=== PATIENT | male | born 1970 | race Caucasian/White ===

== ENCOUNTER 2020-04-23 03:03 | Outpatient (CLI) | payer BC, SELFPAY ==
[2020-04-23 16:23] LABS: Abs Immature Grans 0.01 k/cumm (0.0-0.09); Absolute Basophil Count 0.05 k/cumm (0.0-0.2); Absolute Lymphocyte Count 1.42 k/cumm (1.2-3.4); Absolute Monocyte Count 0.41 k/cumm (0.11-0.7); Absolute Neutrophil Count 2.92 k/cumm (1.2-6.7); HCT 42.8 % (40.0-50.0); HGB 15.1 g/dL (13.5-17.5); Immature Grans % 0.2 %; Lymphocytes % 28.9; Mean Corp. HGB Concentration 35.3 g/dL (32.0-36.0); Mean Corpuscular Hemoglobin 30.9 pg (27.0-33.0); Mean Corpuscular Volume 87.5 fL (80-95); Mean Platelet Volume 10.1 fL (8.0-11.0); Monocytes % 8.4; Neutrophils % 59.5; Platelet Count 202 x1000/uL (130-400); RBC 4.89 m/cumm (4.50-6.00); RBC Distribution Width 11.8 % (11.8-14.1); White Blood Cell Count 4.91 k/cumm (4.4-10.8)
[2020-04-23 16:59] LABS: LDH 150 U/L (85-227)
[2020-04-24 13:51] LABS: Diff Comment Diff Reviewed; RBC Morphology Normal
== END 2020-04-23 03:23 ==
PROVIDERS: PCP Internal Medicine; Visit Provider Internal Medicine
DX: D72.819 Decreased white blood cell count, unspecified (principal)
CPT/HCPCS: 36415; 83615; 85025

== ENCOUNTER 2020-07-31 09:32 | Outpatient (REF) | payer BC, SELFPAY ==
[2020-08-04 15:49] LABS: Patient Race White; SARS-CoV-2 RNA Undetected (Undetected); SARS-CoV-2 Specimen Source Nasal
== END 2020-07-31 09:52 ==
LOC: NCHCN 09:32
PROVIDERS: PCP Internal Medicine; Visit Provider Nurse Practitioner Family
DX: J00 Acute nasopharyngitis [common cold] (principal)
CPT/HCPCS: U0003

== ENCOUNTER 2021-12-21 16:29 | Outpatient (CLI) | payer BC, SELFPAY ==
--- NOTE | 2021-12-21 10:25 | DI.RAD_ITS ---
Exam(s) XR HAND LT LIMITED EXAM: XR HAND LT LIMITED CLINICAL HISTORY: PAIN AND TENDERNESS TO IP JT S/P CRUSH INJURY TO LT THUMB. TECHNIQUE: 2D digital imaging was performed. Two views COMPARISON: No exams were available for comparison FINDINGS: The thumb is suboptimally positioned as this is a two-view exam of the hand and not a dedicated thumb exam.. BONES: No acute fracture is present. No bony destructive lesion is seen. JOINTS: No dislocation present. SOFT TISSUE: Normal. IMPRESSION: Unremarkable radiographs of the left hand. If there is continued clinical question of a fracture of the thumb, a dedicated thumb exam should be performed. DATA REPOSITORY: RADIATION DOSE DELIVERED:
== END 2021-12-21 16:49 ==
PROVIDERS: PCP Internal Medicine; Visit Provider Nurse Practitioner Family
DX: M79.642 Pain in left hand (principal); M79.645 Pain in left finger(s); T14.8XXA Other injury of unspecified body region, initial encounter
CPT/HCPCS: 73120

== ENCOUNTER 2022-04-23 02:27 | Outpatient (CLI) | payer BC, SELFPAY ==
--- OUTSIDE RECORDS SUMMARY | 2022-04-23 02:33 | XMS_ITS | Encounter Summary ---
:1970 Author Organization [facility] Address [address] [place] [address] Care Team Providers Name Role Phone Unknown, Provider Primary Care Provider Encounter Details Date Type Department Care Team Description 10/13/2017 Results Only [facility]- Dorothy Castle II, MD [phone] [address] [place], [place] [address] (Wo rk) Social History Tobacco Use Types Packs/Day Years Used Date Never Assessed Sex Assigned at Date Recorded Not on file documented as of this encounter Plan of Treatment Not on filedocumented as of this encounter Procedures Procedure Name Priority Date/Time Associated Diagnosis Comme [facility] SURGICAL PATHOLOGY Routine 10/13/2017 9:41 EST Re sults for this procedure are i n the results section. documented in this encounter Results SURGICAL PATHOLOGY (10/13/2017 9:41 EST) Pathology Report: SURGICAL PATHOLOGY REPORT [facility] Reports generated via electronic interface contain jaclyn ginal data; LABORATORY however they are lacking the format of the original re port. SERVICES Caution should be taken when reading/interpreting unfo rmatted reports. Name: ? MINAL CORDON ? Accession #: ? [id number] ? : ? 1970 (Age: [age]) ??M ? Collect Date: ? 10/13/2017 ? Location: ? [facility] ? Receive Date: ? 017 ? Provider: DOROTHY CHIN II, MD Copy to: ? Final Pathologic Diagnosis: A. COLON, CECUM, BIOPSY: - ??Colonic mucosa with reactive lymphoid aggregate. B. COLON, PROXIMAL ASCENDING POLYP, BIOPSY: - ??Colonic mucosa with reactive lymphoid aggregate. - ??Deeper levels examined. C. COLON, ASCENDING POLYP, BIOPSY: - ??Colonic mucosa with reactive lymphoid aggregate. - ??Deeper levels examined. D. COLON, SPLENIC FLEXURE POLYP, BIOPSY: - ??Colonic mucosa with reactive lymphoid aggregate. - ??Deeper levels examined. E. COLON, SIGMOID POLYP, BIOPSY: - ??Colonic mucosa with reactive lymphoid aggregate. - ??Deeper levels examined. F. COLON, RECTOSIGMOID POLYP, BIOPSY: - ??Colonic mucosa with no specific pathologic feature s. - ??Deeper levels examined. Document reviewed and electronically signed by: FRAN CHAVEZ MD Report ??Date: 10/19/2017 11:55 By the signature above, the attending physician certif ies that he/she has personally conducted a gross and/or microscopic examin ation of the described specimens and rendered or confirmed the above diagnosi s. Specimen(s) Received: A. ??Cecum B. ??Proximal ascending colon polyp C. ??Ascending colon polyp D. ??Splenic flexure polyp E. ??Sigmoid polyp F. ??Rectosigmoid polyps Clinical History: Screening colonoscopy; colon polyps Gross Description: A. ? Received in formalin labelled with proper pat ient identification (initials J, R) and cecum are two pink-mane tissues (0.2 x 0.2 x 0.1 cm each). Entirely submitted in block A1. ? B. ?Received in formalin labelled with proper p atient identification (initials J, R) and proximal ascending colon po lyp are two pink-mane tissues (0.2 x 0.2 x 0.1 cm and 0.2 x 0.2 x 0.2 cm). Entirely submitted in block B1. C. ?Received in formalin labelled with proper p atient identification (initials J, R) and ascendi ng colon polyp is a single pink-mane tissue fragment (0.3 x 0.2 x 0.1 cm). Submitted intact in block C1. D. ?Received in formalin labelled with proper p atient identification (initials J, R) and splenic flexure polyp are three pink-mane tissues (0.1 x 0.1 x 0.1 cm to 0.3 x 0.3 x 0.1 cm). Entirely submitte d in block D1. E. ?Received in formalin labelled with proper p atient identification (initials J, R) and sigmoid polyp are two pink-mane tissues (0.2 x 0.1 x 0.1 cm and 0.2 x 0.2 x 0.1 cm). Entirely submitted in block E 1. F. ?Received in formalin labelled with proper p atient identification (initials J, R) and rectosi gmoid polyps are two pink-mane tissues (0.2 x 0.1 x 0.1 cm and 0.3 x 0.2 x 0.2 cm). Entirely submitted in block F1. DOROTHY Miller (ASC) 10/18/2017 7:48 AM End of Report Specimen Performing Organization Address City/State/ZIP Code Phon e Number [facility] [address] [place] [address] SERVICES documented in this encounter Visit Diagnoses Not on filedocumented in this encounter Care Teams Consulting Sales Manager Relationship Specialty Start Date End Date Unknown, Provider, PCP - General 10/14/17 documented as of this encounter
--- OUTSIDE RECORDS SUMMARY | 2022-04-23 02:33 | XMS_ITS | Encounter Summary ---
:1970 Author Organization [facility] [place] [address] Care Team Providers Name Role Phone Mike Mosher MD Primary Care Provider Encounter Details Date Type Department Care Team Description 04/11/2020 [place] [facility] [place] [address] Social History Tobacco Use Types Packs/Day Years Used Date Never Smoker Smokeless Tobacco: Never Used Alcohol Use Standard Drinks/Week Comments Yes 0 (1 standard drink = 0.6 oz pure alcoho l) once per month Alcohol Habits Answer Date Recorded How often do you have a drink containing alcohol? Not asked How many drinks containing alcohol do you have on a Not aske d typical day when you are drinking? How often do you have six or more drinks on one Not asked occasion? Comment: once per month 02/13/2020 Sex Assigned at Date Recorded Not on file documented as of this encounter Miscellaneous Notes Telephone Encounter - Penny Leary LNA - 04/11/2020 12:28 PM EDT MAEGAN Manual Lathe Operator Pre-Telemedicine Phone Note [x] Patient not reached [] Patient reached and the following information was reviewed/obtained per protocol: [] Confirmed patient name and date of [] Confirmed telemedicine ruma (Vidyo and Virtual Visit) is downloaded and functioning [] Confirmed location of patient - TeleVisit is taking place in [] [place] [] ID [] If not on [facility] [place] [facility], working on signing up for [facility] [place] [facility] [] Confirmed has completed any pre-visit questionnaires [] If has not received required pre-visit questionnaires, send via [employer] [] Reviewed patient medications [] Documented self-reported vitals: [] Weight [] Height [] pulse recorded [] Other information or concerns documented in this encounter Plan of Treatment Not on filedocumented as of this encounter Visit Diagnoses Not on filedocumented in this encounter Care Teams Entertainment Usher Relationship Specialty Start Date End Date Mike Mosher MD PCP - General General Internal Medicine 02/11/[address] [place] [id number] documented as of this encounter
--- OUTSIDE RECORDS SUMMARY | 2022-04-23 02:33 | XMS_ITS | Encounter Summary ---
:1970 Author Organization [facility] [address] Care Team Providers Name Role Phone Mike Mosher MD Primary Care Provider Reason for Visit Reason Comments Follow-up rhinitis Encounter Details Date Type Department Care Team Description 06/18/2020 TH Visit Allergy at [facility] Cherie Schaffer, Chronic rhinitis; (TeleHealth) [facility] Adverse food reaction, subsequent encoun ter; [facility] Chronic conjunctivitis of jaydon th eyes, unspecified chronic conjunctivitis type; [facility] [address] History of eosinophilia; [phone] ALLERGY AND Leukopenia, unspecified type ; [phone] [place]UNOLOG[place] [id number] Social History Tobacco Use Types Packs/Day Years [...] on file documented as of this encounter Progress Notes Cherie Schaffer MD - 06/18/2020 1:30 PM EDT [facility] Telehealth Visit 2019 Public Health Crisis, COVID19 Pandemic Section of Allergy, Asthma and Immunology Patient Location: [place] I obtained the patient's consent to receiving health care services at [facility] through telemedicine. We discussed the opportunities and limitations of delivering health care services through telemedicine. I told the patient that the telemedicine service is being delivered over a secure connection, except in the event of emergency conditions when such requirements may be waived. Patient agreed to the participation of other individuals assisting with their care by telemedicine, if indicated. Patient informed that telemedicine informed consent form is available for patient's review in [facility] patient portal, [facility] Chief Complaint Patient presents with ??? Follow-up rhinitis HPI. Mike Cordon Is here today for a follow up visit. Last encounter in this section was on 04/16/2020 The patient has abdominal pain and bloating that is improved since his last visit. His primary care wears a Nitropatch has prescribed him D- Hist. Since starting D- Hist, he has noted a decrease in bloating and abdominal pain. He also takes zinc and magnesium supplements and vitamin C supplements. He has eliminated apples from his diet and feels his IBS has improved. The patient continues to have abdominal pain and bloating if he eats garlic and onions. He does havea history of IBS. He has been keeping a food diary. He is tolerating gluten-free pizza. The josé miguel does not have any postnasal drip and itchy eyes currently. He hasent clear rhinorrhea and nasal congestion which is typically worse this time of the year. He has not needed to use Pataday and he is currently not on any antihistamines. He has not needed any oral steroids. During the summer he wears a mask when he mows the lawn. He otherwise, has symptoms of rhinorrhea bilaterally and watery eyes bilaterally. He was taking Claritin, Zyrtec, Pataday, Nasonex for many years. He changed his dietand was able to stop these medications for the last 2 years and his rhinitis and conjunctivitis are not as severe. No prior allergy skin prick test. He is not on any oral steroids. He was seen by ENT on March 21, 2020. Work-up for GERD was unremarkable. He had moderate left nasal septal deviation. No nasal polyps. He had an elevated WBC with the last blood draw. He had it repeated. Labs not available at today's visit. No unexplained fever, chills, night sweats, weight loss, decreased appetite or lymphadenopathy. He takes calcium supplements. Review of Systems: All other systems reviewed and negative, except as noted below. Review of Systems HENT: Positive for congestion. Gastrointestinal: Positive for bloating and abdominal pain. All other systems reviewed and are negative. Allergies, medications, past medical/ surgical history were reviewed and updated in eDH. Allergies: Patient has no known allergies. Medications: Outpatient Medications Marked as Taking for the 06/18/20 encounter (TH Visit (TeleHealth)) with Cherie Schaffer MD Medication Sig Dispense Refill ??? UNABLE TO FIND Med Name: D- Hist Takes one tab daily in the morning with breakfast Past Medical and Social History: Past Medical History: Diagnosis Date ??? GERD (gastroesophageal reflux disease) Past Surgical History: Procedure Laterality Date ??? BACK SURGERY ??? HERNIA REPAIR Family history: Family History Problem Relation Age of Onset ??? Asthma Mother ??? Allergic Rhinitis Mother ??? Allergic Rhinitis Sister ??? Asthma Sister Social history: Social History Socioeconomic History ??? Marital status: Spouse name: None ??? Number of children: None ??? Years of education: None ??? Highest education level: None Occupational History ??? None Social Needs ??? Financial resource strain: None ??? Food insecurity Worry: None Inability: None ??? Transportation needs Medical: None Non-medical: None Tobacco Use ??? Smoking status: Never Smoker ??? Smokeless tobacco: Never Used Substance and Sexual Activity ??? Alcohol use: Yes Comment: once per month ??? Drug use: Yes Types: Marijuana Comment: occasionally takes edible marijuana ??? Sexual activity: None Lifestyle ??? Physical activity Days per week: None Minutes per session: None ??? Stress: None Relationships ??? Social connections Talks on phone: None Gets together: None Attends temple service: None Active member of club or organization: None Attends meetings of clubs or organizations: None Relationship status: None ??? Intimate partner violence Fear of current or ex partner: None Emotionally abused: None Physically abused: None Forced sexual activity: None Other Topics Concern ??? None Social History Narrative ??? None Physical Exam: Physical exam: Constitutional: Awake, alert, no acute distress Head: Normocephalic, atraumatic Eyes: Conjunctiva without injection or icterus, no discharge appreciated, no eyelid edema ENT: No angioedema of tongue or lips, normal pinnae, no anterior nasal drainage observed, no audiblestridor Neck: No visible goiter or gross enlargement of neck. Respiratory: No increased work of breathing observed, no coughing observed, speaking in full sentences, normal rate of breathing, no accessory muscle use CVS: Normal color and perfusion, no apparent cyanosis Extremities: No apparent joint deformity observed, normal appearing muscle bulk, normal and symmetric range of motion of visible extremities Skin: No visible rash or lesions, normal color, no mottling Neuro:EOMI, no dysarthria Psych: Normal grooming, appropriate mood and affect, normal volume/quantity, tone of speech, normal thought process and content Tests or Procedures: Component Latest Ref Rng & Units 03/21/2020 WBC 4.0 - 9.5 x10(3)/mcL 3.8 (L) RBC 4.58 - 5.54 x10(6)/mcL 5.30 Hemoglobin 13.7 - 16.5 gm/dL 16.0 Hematocrit 40.5 - 48.5 % 47.0 MCV 82.9 - 93.1 fL 88.7 MCH 27.5 - 32.1 pg 30.2 MCHC 32.0 - 35.7 gm/dL 34.0 Platelets 145 - 357 x10(3)/mcL 195 RDWSD 36.0 - 45.0 fL 37.2 RDWCV 11.4 - 13.8 % 11.5 MPV 7.6 - 12.9 fL 10.1 nRBC % Auto % 0.0 nRBC Abs Auto 0.000 - 0.000 x10(3)/mcL 0.000 Neutrophils % % 55.4 Neutr Abs (ANC) 1.70 - 6.10 x10(3)/mcL 2.08 Lymphocytes % % 31.1 Lymphocytes Abs 0.9 - 3.2 x10(3)/mcL 1.2 Monocytes % % 10.9 Monocyte Abs 0.3 - 0.9 x10(3)/mcL 0.4 Eosinophils % % 1.3 Eosinophils Abs 0.0 - 0.4 x10(3)/mcL 0.0 Basophils % % 1.3 Basophils Abs 0.0 - 0.1 x10(3)/mcL 0.0 Immature Gran % % 0.00 Marisa Gran Abs 0.00 - 0.04 x10(3)/mcL 0.00 Orchard Grass IgE kU/L <0.35 Eastern Apache IgE kU/L <0.35 Maya Kindra, IgE kU/L <0.35 Mouse Epi IgE kU/L <0.35 March grass, IgE kU/L <0.35 Moro IgE kU/L <0.35 Swazi Plantain IgE kU/L <0.35 [place]'s Quarter IgE kU/L <0.35 Rough Pigweed IgE kU/L <0.35 Mugwort IgE kU/L <0.35 H halodes, IgE kU/L <0.35 Penicillium IgE kU/L <0.35 Cladospor IgE kU/L <0.35 A Fumigatus IgE kU/L <0.35 Alt Tenuis IgE kU/L <0.35 Mites/D.P. IgE kU/L <0.35 Mites/D.F. IgE kU/L <0.35 Ragweed IgE kU/L <0.35 Myron Grass IgE kU/L <0.35 Dog Epi IgE kU/L <0.35 Cat Epi IgE kU/L <0.35 Beech IgE kU/L <0.35 Elm IgE kU/L <0.35 [place] IgE kU/L <0.35 White [place] IgE kU/L <0.35 White Ernst IgE kU/L <0.35 [place]/Maple IgE kU/L <0.35 Silver Birch IgE kU/L <0.35 Tryptase <=11.1 ng/mL 4.4 Latex IgE kU/L <0.35 Onion IgE kU/L <0.35 Garlic IgE kU/L <0.35 Pineapple IgE kU/L <0.35 Grape IgE kU/L <0.35 Wheat IgE kU/L <0.35 Shrimp IgE kU/L <0.35 Scallop IgE kU/L <0.35 Oyster IgE kU/L <0.35 Lobster IgE kU/L <0.35 Crab IgE kU/L <0.35 Clams IgE kU/L <0.35 C4 Complement 10 - 40 mg/dL 24 Impression Report Plan: # Chronic rhinitis # Conjunctivitis - Serum IgE testing reviewed and unremarkable for common local environmental allergies - Rhinitis may be secondary to exposure to non- allergen nasal and ocular irritants - May start OTC Pataday per communications writer's directions. If symptoms persist, may return for for allergy skin prick tests. - Take precautions to minimize exposure of nasal irritants ie masks, goggles # Adverse food reactions # Chronic abdominal pain - Serum IgE testing to possible food triggers was unremarkable. C4 level was normal- unlikely to have underlying hereditary or acquired angioedema causing throat symptoms. ENT evaluation unremarkable for LPR. - Most likely non- IgE mediated. - Improved with D- hist and food elimination. - Avoid foods that he does not tolerate. Avoid foods a/w bloating. - F/u with PCP for management of chronic abdominal pain # Leukopenia - No B symptoms - Request outside labs from [facility]. - Patient has not f/u with PCP regarding this finding. - Not clear if new. Patient plans to clarify with PCP/ fruit farmworker to find out if new finding. If new, recommend additional workup for hematologic disorder. # History of eosinophilia - 03/21/2020 peripheral eosinophil count was normal. - If develop B symptoms or eosinophil level increases, recommend PCP consider hematologic workup No orders of the defined types were placed in this encounter. Return if symptoms worsen or fail to improve, for FUWO ( follow- up without testing) adverse food reaction. Ongoing follow-up with the patient's primary care provider is recommended and encouraged. eDH record was reviewed. Written instructions were reviewed and provided to the patient. No learning barriers were identified. The risks, benefits, alternatives and indications for the use of mediations prescribed or recommended during today's visit were reviewed with the patient. The patient understood and agreed with what was discussed. All questions were answered. documented in this encounter Plan of Treatment Not on filedocumented as of this encounter Visit Diagnoses Diagnosis Chronic rhinitis Adverse food reaction, subsequent encoun ter Chronic conjunctivitis of both eyes, uns pecified chronic conjunctivitis type History of eosinophilia Personal history of diseases of blood an d blood-forming organs Leukopenia, unspecified type Chronic abdominal pain Abdominal pain, unspecified site documented in this encounter Care Teams Makeup Editor Relationship Specialty Start Date End Date Mike Mosher MD PCP - General General Internal Medicine 02/11/[address] [place] [id number] documented as of this encounter
--- OUTSIDE RECORDS SUMMARY | 2022-04-23 02:33 | XMS_ITS | Encounter Summary ---
:1970 Author Organization [facility] [place] [address] Care Team Providers Name Role Phone Mike Mosher MD Primary Care Provider Reason for Visit Reason Comments Follow-up adverse food reaction Encounter Details Date Type Department Care Team Description 04/16/2020 TH Visit Allergy at [facility] Cherie Schaffer, Chronic rhinitis; (TeleHealth) [facility] Chronic conjunctivitis of both eyes, uns pecified chronic conjunctivitis type; [facility] Adverse food reaction, subse quent encounter; [place], [place] CENTER Leukopenia, unspecified type; [id number] ALLERGY AND History of eosinophilia; [phone] IMMUNOLOGY [place] [address] Social History Tobacco Use Types Packs/Day Years [...] encounter Progress Notes Cherie Schaffer MD - 04/16/2020 8:30 AM EDT [facility] Telehealth Visit 2019 Public Health Crisis, COVID19 Pandemic Section of Allergy, Asthma and Immunology Patient Location: [place] I obtained the patient's consent to receiving health care services at [facility] through telemedicine. We discussed the opportunities and [...] form is available for patient's review in [facility]'s patient portal, [facility]. Chief Complaint Patient presents with ??? Follow-up adverse food reaction HPI. Mike Cordon Is here today for a follow up visit. Last encounter in this section was on 02/13/2020 The patient continues to have abdominal pain and bloating if he eats garlic and onions. He does havea history of IBS. He has been keeping a food diary. He has conjunctivitis bilaterally with postnasal drip. During the summer he wears a mask when he mows the lawn. He otherwise, has symptoms of rhinorrhea bilaterally and watery eyes bilaterally. He was taking Claritin, Zyrtec, Pataday, Nasonex for many years. He changed his diet and was able to stop these medications for the last 2 years and his rhinitis and conjunctivitis are not as severe. No prior allergy skin prick test. He is not on any oral steroids. He was seen by ENT on March 21, 2020. Work-up for GERD was unremarkable. He had moderate left nasal septal deviation. No nasal polyps. He is not on oral steroids. No unexplained fever, chills, night sweats, weight loss, decreased appetite or lymphadenopathy. He takes calcium supplements. Review of Systems: All other systems reviewed and negative, except as noted below. ROS Allergies, medications, past medical/ surgical history were reviewed and updated in eD. Allergies: Patient has no known allergies. Medications: No outpatient medications have been marked as taking for the 04/16/20 encounter (TH Visit (TeleHealth)) with Cherie Schaffer MD. Past Medical and Social History: Past Medical [...] on phone: None Gets together: None Attends gnosticism service: None Active member of club or [...] x10(3)/mcL 0.00 Orchard Grass IgE kU/L <0.35 [place] IgE kU/L <0.35 Maya Kindra, IgE kU/L <0.35 Mouse Epi IgE kU/L <0.35 March grass, IgE kU/L <0.35 Platte IgE kU/L <0.35 [place] Plantain IgE kU/L <0.35 [place] IgE [...] IgE kU/L <0.35 Elm IgE kU/L <0.35 [place] IgE kU/L <0.35 White Candler IgE kU/L <0.35 White Ernst IgE kU/L <0.35 Gates/Maple IgE kU/L <0.35 Silver Birch IgE kU/L [...] irritants - May start OTC Pataday per apparatus cleaner's directions. If symptoms persist, may return for for allergy skin prick tests. - Take precautions to minimize exposure of nasal irritants ie masks, goggles # Adverse food reactions # Chronic abdominal pain - reviewed serum IgE testing which was unremarkable. C4 level was normal- unlikely to have underlying hereditary or acquired angioedema causing throat symptoms. ENT evaluation unremarkable for LPR. - Most likely non- IgE mediated. - Will email food diary via [facility] - Avoid foods that he does not tolerate. Avoid foods a/w bloating. - F/u with PCP for management of chronic abdominal pain # Leukopenia - No B symptoms - Not clear if new. Patient plans to clarify with PCP/ carton marker machine to find out if new finding. If new, recommend additional workup for hematologic disorder. # History of eosinophilia - 03/21/2020 peripheral eosinophil count was normal. - If develop B symptoms or eosinophil level increases, recommend PCP consider hematologic workup Orders Placed This Encounter Procedures ??? CBC (with Diff) ??? Peripheral Smear Review ??? Lactate Dehydrogenase Medication ordered or changed during this encounter, will not show discontinued medications Medications ??? olopatadine (Pataday) 0.2 % Drops Sig: Apply 1 drop to eye daily as needed (allergies). Dispense: 1 Bottle Refill: 3 Return in about 6 weeks (around 05/28/2020) for FUWO ( follow- up without testing) leukkopenia. eDH record was reviewed. Written instructions were [...] this encounter Visit Diagnoses Diagnosis Chronic rhinitis Chronic conjunctivitis of both eyes, uns pecified chronic conjunctivitis type Adverse food reaction, subsequent encoun ter Leukopenia, unspecified type History of eosinophilia Personal history of diseases of blood an d blood-forming organs Chronic abdominal pain Abdominal pain, unspecified site documented in this encounter Care Teams Client Service Manager Relationship Specialty Start Date End Date Mike Mosher MD PCP - General General Internal Medicine 02/11/[address] [place] [id number] documented as of this encounter
--- OUTSIDE RECORDS SUMMARY | 2022-04-23 02:33 | XMS_ITS | Clinical Summary ---
:1970 Author Organization Health system Address [address] [place] [address] Care Team Providers Name Role Phone Unknown, Provider Primary Care Provider Social History Tobacco Use Types Packs/Day Years Used Date Never Assessed Sex Assigned at Date Recorded Not on file Plan of Treatment Not on file Care Teams Stock Tracer Relationship Specialty Start Date End Date Unknown, Provider, PCP - General 10/14/17
--- OUTSIDE RECORDS SUMMARY | 2022-04-23 02:33 | XMS_ITS | Clinical Summary ---
:1970 Author Organization [facility] [place] [address] Care Team Providers Name Role Phone Mike Mosher MD Primary Care Provider Allergies No known active allergies Medications Medication Sig Dispensed Refills Start Date End Date Status olopatadine (Pataday) Apply 1 drop to 1 Bottle 3 04/16/2020 Active 0.2 % Drops eye daily as needed (allergies). Additional Information Patient not taking. Reported on 06/18/2020 UNABLE TO FIND Med Name: D- Hist 0 Active Takes one tab daily in the morning with breakfast Active Problems No known active problems Family History Medical History Relation Comments Allergic Rhinitis Mother Asthma Mother Allergic Rhinitis Sister Asthma Sister Relation Status Comments Mother Sister Social History Tobacco Use Types Packs/Day Years [...] Assigned at Date Recorded Not on file Last Filed Vital Signs Vital Sign Reading Time Taken Comments Blood Pressure - - Pulse - - Temperature - - Respiratory Rate - - Oxygen Saturation - - Inhaled Oxygen Concentration - - Weight 64 kg (141 lb) 03/21/2020 8:31 AM EDT Height 172.7 cm (5' 8) 03/21/2020 8:31 AM EDT Body Mass Index 21.44 03/21/2020 8:31 AM EDT Plan of Treatment Health Maintenance Due Date Last Done Comments Covid-19 Vaccine (#1) 1975 HIV screen 1988 Hepatitis C Screening 1988 Lipid Screening 1988 Tdap adult 1989 Tetanus vaccine 1989 Colonoscopy 2015 Zoster vaccine (1 of 2) 2020 Influenza (Flu) vaccine (1 of 1 - Influenza standard 06/17/2022 series) Insurance Payer Benefit Plan Subscriber ID Effective Dates Phone Address Type / Group [facility] [id number] 2018-[facility] [phone] [address] [facility] [address] [facility] [id number] Care Teams Photocopying Equipment Repairer Relationship Specialty Start Date End Date Mike Mosher MD PCP - General General Internal Medicine 02/11/20 [address] [place], [place] [address]
--- OUTSIDE RECORDS SUMMARY | 2022-04-23 02:33 | XMS_ITS | Encounter Summary ---
:1970 Author Organization [facility] [place] [address] Care Team Providers Name Role Phone Mike Mosher MD Primary Care Provider Encounter Details Date Type Department Care Team Description 06/20/2020 Telephone Allergy at [facility] Cherie Schaffer MD [facility] [place] [address] ALLERGY AND IMMUNOLOGY [phone] [place], [place] [address] (Wo rk) Social History Tobacco Use Types [...] on filedocumented in this encounter Care Teams Artificial Fly Tier Relationship Specialty Start Date End Date Mike Mosher MD PCP - General General Internal Medicine 02/11/[address] [place] [phone] documented as of this encounter
--- OUTSIDE RECORDS SUMMARY | 2022-04-23 02:33 | XMS_ITS | Encounter Summary ---
:1970 Author Organization [facility] [place] [address] Care Team Providers Name Role Phone Mike Mosher MD Primary Care Provider Encounter Details Date Type Department Care Team Description 04/21/2020 Telephone Allergy at [facility] [place] [address] Social History Tobacco Use Types Packs/Day [...] this encounter Miscellaneous Notes Telephone Encounter - Joanne Barahona RN - 04/21/2020 4:10 PM EDT Walked patient through sending a message through [facility] to Dr. Schaffer for his food diary. Telephone Encounter - Joanne Barahona RN - 04/21/2020 4:10 PM EDT ----- Message from Cherie Schaffer MD sent at 04/16/2020 9:09 AM EDT ----- The patient tried to upload his food diary in [facility] and couldn't figure out how to do it. Can you guide him on how to upload attachments in [facility]? Thanks. MKE documented in this encounter Plan of Treatment Not on filedocumented as of this encounter Visit Diagnoses Not on filedocumented in this encounter Care Teams Associate Manager Affiliate Marketing Relationship Specialty Start Date End Date Mike Mosher MD PCP - General General Internal Medicine 02/11/[address] [place] [phone] documented as of this encounter
--- OUTSIDE RECORDS SUMMARY | 2022-04-23 02:34 | XMS_ITS | Encounter Summary ---
:1970 Author Organization [facility] Address [facility] [place] [address] Care Team Providers Name Role Phone Mike Mosher MD Primary Care Provider Reason for Visit Consultation (Routine) - Canceled Specialty Diagnoses / Procedures Referred By Contact Refer red To Contact Otolaryngology Diagnoses Chronic rhinitis Adverse food reaction, initial encounter Chronic abdominal pain Gastroesophageal reflux disease, esophagitis presence not specified Sensation of swollen throat Cherie Schaffer MD [facility] Otolaryngology [address] [place] [address] [place] [address] ALLERGY AND Phone: [place] [address] Referral ID Status Reason Start Date Expiration Date Visits V isits Requested Authorized [id number] Canceled Consult, 02/13/2020 02/12/2021 1 1 Test & Treat Encounter Details Date Type Department Care Team Description 02/20/2020 TH Visit Otolaryngology at [facility] Jai Bustillo Gastroesophageal reflux (TeleHealth) [facility] Elijah FRENCH MD disease, esophagitis Drive [facility] [place] [address] CENTER [phone] [place] [address] Social History Tobacco Use Types Packs/Day Years [...] documented as of this encounter Progress Notes Jai Bustillo III, MD - 02/20/2020 4:00 PM EDT Otolaryngology Outpatient Consultation Note Patient verbally consents to this telephone visit and understands that this visit may be billed, similar to a clinic office visit. I provided care to the patient today via telephone call. The total time associated with this visit was 15 minutes. Date of Visit: 02/20/2020 Location of Visit: Otolaryngology Clinic, [facility] Patient: Mike Cordon ([id number]; 1970) Primary Care Provider: Mike Mosher MD Referring Provider: Cherie Schaffer Reason for Visit: Mike is a 49 y.o. male seen at the request of Cherie Schaffer in consultation forallergic rhinitis. History of Present Illness: Mike reports excessive food allergies, and has occasional throat swelling, the exact triggers are unknown. He is scheduled for both Allergy and ENT evaluations, and the hope is flexible endoscopy might elucidate his throat symptoms. The thought is that the symptoms are GERD related. Past Medical History: Past Medical History: Diagnosis Date ??? GERD (gastroesophageal reflux disease) Past Surgical History: Past Surgical History: Procedure Laterality Date ??? BACK SURGERY ??? HERNIA REPAIR Medications: No current outpatient medications on file prior to visit. No current facility-administered medications on file prior to visit. Allergies: Patient has no known allergies. Social History: Lives in [place] [id number], Tobacco:NO Alcohol:Yes Other: Immunizations UTD. Family History: Family History Problem Relation Age of Onset ??? Asthma Mother ??? Allergic Rhinitis Mother ??? Allergic Rhinitis Sister ??? Asthma Sister Review of Systems: Pertinent positive findings discussed above. No other findings on review of constitutional, visual, cardiovascular, respiratory, gastrointestinal, genitourinary, musculoskeletal, dermatologic, neurological, psychiatric, endocrine, hematologic or immunologic systems. Impression: Obviously endoscopy will be required in clinic, and we will schedule him in the next several weeks as the schedule returns to normal. documented in this encounter Plan of Treatment Not on filedocumented as of this encounter Visit Diagnoses Diagnosis Gastroesophageal reflux disease, esophag itis presence not specified documented in this encounter Care Teams Registered Nurse Surgical Services Relationship Specialty Start Date End Date Mike Mosher MD PCP - General General Internal Medicine 02/11/[address] [place] [phone] documented as of this encounter
--- OUTSIDE RECORDS SUMMARY | 2022-04-23 02:34 | XMS_ITS | Encounter Summary ---
:1970 Author Organization [facility] [place] [address] Care Team Providers Name Role Phone Mike Mosehr MD Primary Care Provider Encounter Details Date Type Department Care Team Description 03/21/2020 Office Visit Otolaryngology at [facility] Jai Bustillo DNS (deviated nasal [facility] Craig bhatti III, MD septum) [place] [address] [place] [address] CENTER OTOLARYNGOLOGY [place], [place] [address] Social History Tobacco Use Types Packs/Day Years [...] on file documented as of this encounter Last Filed Vital Signs Vital Sign Reading Time Taken Comments Blood Pressure - - Pulse - - Temperature - - Respiratory Rate - - Oxygen Saturation - - Inhaled Oxygen Concentration - - Weight 64 kg (141 lb) 03/21/2020 8:31 AM EDT Height 172.7 cm (5' 8) 03/21/2020 8:31 AM EDT Body Mass Index 21.44 03/21/2020 8:31 AM EDT documented in this encounter Progress Notes Jai Bustillo III, MD - 03/21/2020 8:30 AM EDT This note created with SnapMy[employer] speech recognition software. Mike Cordon returns for formal exam and endoscopy after tele-health interview. He continues to report mild throat irritation. His voice has not changed. He denies hemoptysis and dysphagia. Review of Systems: A complete review of constitutional, eyes, cardiovascular, respiratory, GI, , musculo-skeletal, skin, endocrine, psychiatric, hematologic, lymphatic and immunologic systems is completed and is as noted in the HPI. All other systems are otherwise negative. Examination shows the following: GENERAL: Well developed, well appearing, no acute distress. Vitals reviewed. HEAD/FACE/EYES: Normocephalic with no gross deformity. Extraocular movements intact. EARS: Normal exam of the external ear, ear canal, and middle ear bilaterally. NOSE: Normal external nasal exam. Septum midline. Turbinates are normal. SALIVARY: Parotid and submandibular glands are normal to inspection and palpation. ORAL CAVITY: Normal exam of oral tongue Normal mucosa without lesion Floor of mouth is soft. Dentition good repair OROPHARYNX: Normal tonsils. Normal soft palate and uvula. Posterior pharyngeal wall normal. LARYNX: Vocal cords normal. Vocal mobility normal. No mucosal lesions noted. NECK: No asymmetry on inspection No adenopathy. Normal thyroid. PROCEDURES:Flexible Fiberoptic Laryngoscopy: Topical anesthetic and decongestant were applied to the nasal cavity. The flexible scope was passed to the level of the cords without difficulty. The patient tolerated the procedure well without any complications. Nasal Cavity: Left deviated nasal septum Nasopharynx: Normal Oropharynx: Normal Larynx: Normal vocal mobility and morphology. Hypopharynx: Normal IMPRESSION: Normal head and neck exam except for moderately deviated nasal septum. No evidence of GERD noted today. He was reassured we find no cause for concern. documented in this encounter Plan of Treatment Not on filedocumented as of this encounter Visit Diagnoses Diagnosis DNS (deviated nasal septum) Deviated nasal septum documented in this encounter Care Teams Cupola Operator Relationship Specialty Start Date End Date Mike Mosher MD PCP - General General Internal Medicine 02/11/[address] [address] documented as of this encounter
--- OUTSIDE RECORDS SUMMARY | 2022-04-23 02:34 | XMS_ITS | Encounter Summary ---
:1970 Author Organization [facility] [place] [address] Care Team Providers Name Role Phone Mike Mosher MD Primary Care Provider Reason for Visit Reason Comments Abdominal Pain Consultation (Routine) - Specialty Diagnoses / Procedures Referred By Contact Refer red To Contact Allergy Diagnoses Allergy status to unspecified drugs, medicaments and biological substances HX OF MULTIPLE ALLERGIES Opal Layton, HUMPHREY [facility] [place], [place] Allergy 6m Procedures PATCH SKIN ALLERGY TEST [address] [facility] [address] [place] [address] [place], [place] [address] Referral ID Status Reason Start Date Expiration Date Visits V isits Requested Authorized [id number] Consult, Test 01/10/2020 01/09/2021 [facility] PCP Updated and/or Approved Encounter Details Date Type Department Care Team Description 02/13/2020 TH Visit Allergy [place] [facility] [place]rie Schaffer, Chronic rhinitis; (TeleHealth) [facility] Adverse food reaction, initial encounter ; [facility] Chronic abdominal pain; [facility] Gastroesophageal reflux disease, esophag itis presence not specified; [id number] ALLERGY AND Sensation of swollen throat; [phone] IMMUNOLOGY [place] of [place] [address] Social History Tobacco Use Types Packs/Day Years [...] encounter Progress Notes Cherie Schaffer MD - 02/13/2020 8:00 AM EDT [facility] Telehealth Visit 2019 Public Health Crisis, COVID19 Pandemic Section of Allergy, Asthma and Immunology Patient Location: [place] I obtained the patient's consent to receiving health care services at [facility] through telemedicine. We discussed the opportunities and [...] form is available for patient's review in [employer] patient portal, [place]. Start time 8:02 AM. End time 8:37 AM Chief Complaint Patient presents with ??? Abdominal Pain HPI The patient is a pleasant 49 y.o. year old male whose consultation was requested by . The reason for consultation is evaluation and management of adverse food reactions and sinusitis. Per referral patient has a history of eosinophilia. A couple of years ago the patient started having mucus containing stools. He had a colonoscopy in 2017 that was negative except for polyps and it was recommended he have a 10-year follow-up colonoscopy. About 7 to 8 years ago he had an EGD that was negative per the patient. He was diagnosed with IBS. He was on Prilosec for 25 years. He tried stopping it and had worsening GERD symptoms. He is currently not on a PPI. He takes probiotics and peppermint oil as needed for symptoms. He had M RT with his natural path. He is avoiding certain foods with some improvement in his abdominal symptoms. He continues to have abdominal cramping and sensation of throat swelling. This occurs after eating. He does not have a sore throat after laying flat. The abdominal cramping can occur randomly with bloating. It is especially worse after eating fries from restaurants that cooking different foods in the fryer such as breaded food. No associated rash, cough or angioedema of the lips, eyelids or tongue. He can eat foods cooked in his air Fryer without any symptoms. He rarely eats shellfish because he ate shrimp which caused abdominal cramping. The cramping starteda couple of hours after eating the shrimp and lasted through the next day. He had soft stools the next day. He notes that the shrimp was pretty cooked and saut??ed and all of oil, spices and lemon. The patient tolerates scallops. He tolerates salmon, tuna, tree nuts, eggs and soy. He avoids peanuts based on the MRT finding by the natural path; peanut was positive. If he drinks milk, he has heartburn. He tolerates chocolate. He eats wheat occasionally. He tolerates it. Grapes, garlic, onion and pineapple because of abdominal cramping. He has no history of latex allergy. No history of cholecystectomy. He has a history of environmental allergies. His rhinitis and conjunctivitis occur intermittently throughout the year. He does not note any seasonal pattern. His symptoms are primarily bilateral itchy eyes and clear rhinorrhea bilaterally. He performs a [place] pot saline rinses to prevent infections. He uses distilled water with his rinses. He does not use antihistamines. He avoids taking pharmaceutical medications. He has no history of asthma. Social and environmental history: Patient has 1 cat and 1 dog. The cat enters his bedroom. He has a woodstove. He works at a local school performing maintenance. He wears a mask with dust exposure. Review of Systems: All other systems reviewed and negative except as noted below: Review of Systems All other systems reviewed and are negative. Allergies, medications, past medical/ surgical history were reviewed and updated in [facility]. Allergies: Patient has no known allergies. Medications: No outpatient medications have been marked as taking for the 02/13/20 encounter (TH Visit (TeleHealth)) with Cherie Schaffer [...] on phone: None Gets together: None Attends restorationism service: None Active member of club or [...] visible rash or lesions, normal color, no mottling. Has a mustache. Neuro:EOMI, no dysarthria Psych: Normal grooming, appropriate mood and affect, normal volume/quantity, tone of speech, normal thought process and contentTESTS/PROCEDURES IMPRESSION/REPORT/PLAN 1. Chronic rhinitis 2. Adverse food reaction, initial encounter 3. Chronic abdominal pain 4. Gastroesophageal reflux disease, esophagitis presence not specified 5. Sensation of swollen throat 6. History of eosinophilia The patient has a history of abdominal symptoms of cramping and bloating, reflux disease, eosinophilia and rhinitis. He also has a sensation of throat swelling which may be secondary to uncontrolled reflux, LPR, or rhinitis. Idiopathic angioedema is also considered in the differential, but less likelysince he does not have any episodes of angioedema involving other mucosal surfaces. Per the referralhe has a history of eosinophilia, however, there is no laboratory testing included in the referral to support the diagnosis. He has chronic rhinitis that may be secondary to allergic or nonallergic triggers. His abdominal symptoms are most likely secondary to non--IgE mediated adverse food reactions, however, IgE mediated mediated food allergies are considered lower on the differential. - Recommend patient keep a food diary and evaluated every couple of weeks to notice any pattern of symptoms with the specific food. He should avoid any food that he notices a pattern with for at least 4 to 8 weeks. If he feels better, he should continue to avoid the food. If he does not notice a difference, he should reintroduce the food into his diet. - We will check serum IgE levels to foods noted below and latex to evaluate his adverse food reactions - Will refer to ENT to evaluate for any anatomical variation, LPR and sinusitis contributing to his throat symptoms - We will check a baseline complement C4 level to evaluate for underlying hereditary or acquired angioedema though unlikely - We will check serum IgE levels to common environmental allergens as possible triggers for his rhinitis - Continue nasal saline rinses 1-2 times daily. Continue to use distilled water with rinses. - We will check CBC with differential to evaluate for eosinophilia since he has a history of eosinophilia - Continue to take precautions to minimize risk of dust exposure -Continue to avoid foods that he does not tolerate or has a history of reacting to. Notify food servers or cooks of these foods. Orders Placed This Encounter Procedures ??? C4 Complement ??? Clams IgE ??? Crab IgE ??? Lobster IgE ??? Oyster IgE ??? Scallop IgE ??? Shrimp IgE ??? Wheat IgE ??? Grape IgE ??? Pineapple IgE ??? Garlic IgE ??? Onion IgE ??? Latex IgE ??? Tryptase ??? Birch, silver IgE ??? Maple / [place] IgE ??? Ernst, White IgE ??? [place], White IgE ??? Crane IgE ??? Elm IgE ??? Beech IgE ??? Cat Epithelium IgE ??? Dog Epithelium IgE ??? Myron Grass IgE ??? Ragweed, short/ common IgE ??? House Dust Mites/D.F., IgE ??? House Dust Mites/D.P., IgE ??? Alternaria Tenuis, IgE ??? Aspergillus fumigatus IgE ??? Cladosporium IgE ??? Penicillium IgE ??? Helminthosporium Halodes, IgE ??? Mugwort IgE ??? Pigweed, Rough IgE ??? [place] IgE ??? Jordanian Plantain, IgE ??? [place], IgE ??? Clari Grass IgE ??? Mouse, Epithelium IgE ??? Maya Cornish, IgE ??? Eastern [place], IgE ??? Orchard Grass IgE ??? CBC (with Diff) ??? Referral to ENT Return in about 2 months (around 04/14/2020), or if symptoms worsen or fail to improve, for FUWO ( follow- up without testing) rhinitis, adverse food reactions. eDH record was reviewed. Written instructions were [...] Not on filedocumented as of this encounter Results Orchard Grass IgE (03/21/2020 9:14 AM EDT) athologist Signature Orchard Grass <0.35 kU/L [facility] LABORATORY Comment: Reference Ranges <0.35 kU/L Class 0: ??Normal 0.35-0.69 kU/L Class 1: ??Low level of allergy, indicat erna of ongoing sensitization 0.70-3.49 kU/L Class 2: ??Moderate level of allergy, in dicative of stronger ongoing sensitization 3.50-17.49 kU/L Class 3: ??High level of allergy, indica tive of high level sensitization 17.5-49.9 kU/L Class 4: Very high level of allergy, ind icative of very high level sensitization 50.0-100 kU/L Class 5: Very high level of allergy, ind icative of very high level sensitization Specimen Anatomical Collection Method Collection Time Receive d Time (Source) Location / / Volume Laterality Blood specimen 03/21/2020 9:14 AM 020 1:40 (specimen) EDT PM EDT Resulting Agency Comment Spec In Lab Cherie Schaffer MD IMMUNOLOGY ORDERABLES Performing Organization Address City/[facility]/ZIP Code Phon e Number [address] Garryowen Grafton, IgE (03/21/2020 9:14 AM EDT) athologist Signature Garryowen <0.35 kU/L [facility] LABORATORY Comment: Reference Ranges <0.35 kU/L Class 0: ??Normal 0.35-0.69 kU/L Class 1: ??Low level of allergy, indicat erna of ongoing sensitization 0.70-3.49 kU/L Class 2: ??Moderate level of allergy, in dicative of stronger ongoing sensitization 3.50-17.49 kU/L Class 3: ??High level of allergy, indica tive of high level sensitization 17.5-49.9 kU/L Class 4: Very high level of allergy, ind icative of very high level sensitization 50.0-100 kU/L Class 5: Very high level of allergy, ind icative of very high level sensitization Specimen Anatomical Collection Method Collection Time Receive d Time (Source) Location / / Volume Laterality Blood specimen 03/21/2020 9:14 AM 020 1:40 (specimen) EDT PM EDT Resulting Agency Comment Spec In Lab Cherie Schaffer MD IMMUNOLOGY ORDERABLES Performing Organization Address City/State/ZIP Code Phon e Number [address] Maya Kindra, IgE (03/21/2020 9:14 AM EDT) athologist Signature Maya Kindra, <0.35 kU/L [facility] LABORATORY Comment: Reference Ranges <0.35 kU/L Class 0: ??Normal 0.35-0.69 kU/L Class 1: ??Low level of allergy, indicat erna of ongoing sensitization 0.70-3.49 kU/L Class 2: ??Moderate level of allergy, in dicative of stronger ongoing sensitization 3.50-17.49 kU/L Class 3: ??High level of allergy, indica tive of high level sensitization 17.5-49.9 kU/L Class 4: Very high level of allergy, ind icative of very high level sensitization 50.0-100 kU/L Class 5: Very high level of allergy, ind icative of very high level sensitization Specimen Anatomical Collection Method Collection Time Receive d Time (Source) Location / / Volume Laterality Blood specimen 03/21/2020 9:14 AM 020 1:40 (specimen) EDT PM EDT Resulting Agency Comment Spec In Lab Cherie Schaffer MD CHEMISTRY ORDERABLES Performing Organization Address City/State/ZIP Code Phon e Number [address] Mouse, Epithelium IgE (03/21/2020 9:14 AM EDT) athologist Signature Mouse Epi IgE <0.35 kU/L [facility] LABORATORY Comment: Reference Ranges <0.35 kU/L Class 0: ??Normal 0.35-0.69 kU/L Class 1: ??Low level of allergy, indicat erna of ongoing sensitization 0.70-3.49 kU/L Class 2: ??Moderate level of allergy, in dicative of stronger ongoing sensitization 3.50-17.49 kU/L Class 3: ??High level of allergy, indica tive of high level sensitization 17.5-49.9 kU/L Class 4: Very high level of allergy, ind icative of very high level sensitization 50.0-100 kU/L Class 5: Very high level of allergy, ind icative of very high level sensitization Specimen Anatomical Collection Method Collection Time Receive d Time (Source) Location / / Volume Laterality Blood specimen 03/21/2020 9:14 AM 020 1:40 (specimen) EDT PM EDT Resulting Agency Comment Spec In Lab Cherie Schaffer MD IMMUNOLOGY ORDERABLES Performing Organization Address [facility] Phon e Number [address] Clari Grass IgE (03/21/2020 9:14 AM EDT) P athologist Signature Clari grass, <0.35 kU/L [facility] LABORATORY Comment: Reference Ranges <0.35 kU/L Class 0: ??Normal 0.35-0.69 kU/L Class 1: ??Low level of allergy, indicat erna of ongoing sensitization 0.70-3.49 kU/L Class 2: ??Moderate level of allergy, in dicative of stronger ongoing sensitization 3.50-17.49 kU/L Class 3: ??High level of allergy, indica tive of high level sensitization 17.5-49.9 kU/L Class 4: Very high level of allergy, ind icative of very high level sensitization 50.0-100 kU/L Class 5: Very high level of allergy, ind icative of very high level sensitization >100 kU/L Class 6: Very high level of allergy, ind icative of very high level sensitization Specimen Anatomical Collection Method Collection Time Receive d Time (Source) Location / / Volume Laterality Blood specimen 03/21/2020 9:14 AM 020 1:40 (specimen) EDT PM EDT Resulting Agency Comment Spec In Lab Cherie Schaffer MD IMMUNOLOGY ORDERABLES Performing Organization Address City/[facility]/ZIP [facility] Phon e Number [address] [place], IgE (03/21/2020 9:14 AM EDT) P athologist Signature [place] IgE <0.35 kU/L [facility] LAB[facility] Comment: Reference Ranges <0.35 kU/L Class 0: ??Normal 0.35-0.69 kU/L Class 1: ??Low level of allergy, indicat erna of ongoing sensitization 0.70-3.49 kU/L Class 2: ??Moderate level of allergy, in dicative of stronger ongoing sensitization 3.50-17.49 kU/L Class 3: ??High level of allergy, indica tive of high level sensitization 17.5-49.9 kU/L Class 4: Very high level of allergy, ind icative of very high level sensitization 50.0-100 kU/L Class 5: Very high level of allergy, ind icative of very high level sensitization Specimen Anatomical Collection Method Collection Time Receive d Time (Source) Location / / Volume Laterality Blood specimen 03/21/2020 9:14 AM 020 1:40 (specimen) EDT PM EDT Resulting Agency Comment Spec In Lab Cherie Schaffer MD IMMUNOLOGY ORDERABLES Performing Organization Address City/[facility]/RUST Code Phon e Number [address] Jordanian Plantain, IgE (03/21/2020 9:14 AM EDT) athologist Signature Jordanian <0.35 kU/L [facility] LABORATORY Comment: Reference Ranges <0.35 kU/L Class 0: ??Normal 0.35-0.69 kU/L Class 1: ??Low level of allergy, indicat erna of ongoing sensitization 0.70-3.49 kU/L Class 2: ??Moderate level of allergy, in dicative of stronger ongoing sensitization 3.50-17.49 kU/L Class 3: ??High level of allergy, indica tive of high level sensitization 17.5-49.9 kU/L Class 4: Very high level of allergy, ind icative of very high level sensitization 50.0-100 kU/L Class 5: Very high level of allergy, ind icative of very high level sensitization Specimen Anatomical Collection Method Collection Time Receive d Time (Source) Location / / Volume Laterality Blood specimen 03/21/2020 9:14 AM 020 1:40 (specimen) EDT PM EDT Resulting Agency Comment Spec In Lab Cherie Schaffer MD IMMUNOLOGY ORDERABLES Performing Organization Address City/[facility]/ZIP Code Phon e Number [address] Churchill's Quarter IgE (03/21/2020 9:14 AM EDT) P athologist Signature [place] <0.35 kU/L [facility] LABORATORY Comment: Reference Ranges <0.35 kU/L Class 0: ??Normal 0.35-0.69 kU/L Class 1: ??Low level of allergy, indicat erna of ongoing sensitization 0.70-3.49 kU/L Class 2: ??Moderate level of allergy, in dicative of stronger ongoing sensitization 3.50-17.49 kU/L Class 3: ??High level of allergy, indica tive of high level sensitization 17.5-49.9 kU/L Class 4: Very high level of allergy, ind icative of very high level sensitization 50.0-100 kU/L Class 5: Very high level of allergy, ind icative of very high level sensitization Specimen Anatomical Collection Method Collection Time Receive d Time (Source) Location / / Volume Laterality Blood specimen 03/21/2020 9:14 AM 020 1:40 (specimen) EDT PM EDT Resulting Agency Comment Spec In Lab Cherie Schaffer MD IMMUNOLOGY ORDERABLES Performing Organization Address City/State/[place] [address] Pigweed, Rough IgE (03/21/2020 9:14 AM EDT) athologist Signature Rough Pigweed <0.35 kU/L [facility] LABORATORY Comment: Reference Ranges <0.35 kU/L Class 0: ??Normal 0.35-0.69 kU/L Class 1: ??Low level of allergy, indicat erna of ongoing sensitization 0.70-3.49 kU/L Class 2: ??Moderate level of allergy, in dicative of stronger ongoing sensitization 3.50-17.49 kU/L Class 3: ??High level of allergy, indica tive of high level sensitization 17.5-49.9 kU/L Class 4: Very high level of allergy, ind icative of very high level sensitization 50.0-100 kU/L Class 5: Very high level of allergy, ind icative of very high level sensitization Specimen Anatomical Collection Method Collection Time Receive d Time (Source) Location / / Volume Laterality Blood specimen 03/21/2020 9:14 AM 020 1:40 (specimen) EDT PM EDT Resulting Agency Comment Spec In Lab Cherie Schaffer MD IMMUNOLOGY ORDERABLES Performing Organization Address City/[facility]/ZIP Code Phon e Number [address] Mugwort IgE (03/21/2020 9:14 AM EDT) P athologist Signature Mugwort IgE <0.35 kU/L [facility] LAB[facility]ORY Comment: Reference Ranges <0.35 kU/L Class 0: ??Normal 0.35-0.69 kU/L Class 1: ??Low level of allergy, indicat erna of ongoing sensitization 0.70-3.49 kU/L Class 2: ??Moderate level of allergy, in dicative of stronger ongoing sensitization 3.50-17.49 kU/L Class 3: ??High level of allergy, indica tive of high level sensitization 17.5-49.9 kU/L Class 4: Very high level of allergy, ind icative of very high level sensitization 50.0-100 kU/L Class 5: Very high level of allergy, ind icative of very high level sensitization >100 kU/L Class 6: Very high level of allergy, ind icative of very high level sensitization Specimen Anatomical Collection Method Collection Time Receive d Time (Source) Location / / Volume Laterality Blood specimen 03/21/2020 9:14 AM 020 1:40 (specimen) EDT PM EDT Resulting Agency Comment Spec In Lab Cherie Schaffer MD IMMUNOLOGY ORDERABLES Performing Organization Address City/[facility]/ZIP Code Phon e Number [address] Helminthosporium Halodes, IgE (03/21/2020 9:14 AM EDT) P athologist Signature H halodes, IgE <0.35 kU/L [facility] LABOR[facility]ORY Comment: Reference Ranges <0.35 kU/L Class 0: ??Normal 0.35-0.69 kU/L Class 1: ??Low level of allergy, indicat erna of ongoing sensitization 0.70-3.49 kU/L Class 2: ??Moderate level of allergy, in dicative of stronger ongoing sensitization 3.50-17.49 kU/L Class 3: ??High level of allergy, indica tive of high level sensitization 17.5-49.9 kU/L Class 4: Very high level of allergy, ind icative of very high level sensitization 50.0-100 kU/L Class 5: Very high level of allergy, ind icative of very high level sensitization >100 kU/L Class 6: Very high level of allergy, ind icative of very high level sensitization Specimen Anatomical Collection Method Collection Time Receive d Time (Source) Location / / Volume Laterality Blood specimen 03/21/2020 9:14 AM 020 1:40 (specimen) EDT PM EDT Resulting Agency Comment Spec In Lab Cherie Schaffer MD IMMUNOLOGY ORDERABLES Performing Organization Address City/State/[facility] [place] [address] Penicillium IgE (03/21/2020 9:14 AM EDT) athologist Signature Penicillium IgE <0.35 kU/L [facility] Comment: Reference Ranges <0.35 kU/L Class 0: ??Normal 0.35-0.69 kU/L Class 1: ??Low level of allergy, indicat erna of ongoing sensitization 0.70-3.49 kU/L Class 2: ??Moderate level of allergy, in dicative of stronger ongoing sensitization 3.50-17.49 kU/L Class 3: ??High level of allergy, indica tive of high level sensitization 17.5-49.9 kU/L Class 4: Very high level of allergy, ind icative of very high level sensitization 50.0-100 kU/L Class 5: Very high level of allergy, ind icative of very high level sensitization >100 kU/L Class 6: Very high level of allergy, ind icative of very high level sensitization Specimen Anatomical Collection Method Collection Time Receive d Time (Source) Location / / Volume Laterality Blood specimen 03/21/2020 9:14 AM 020 1:40 (specimen) EDT PM EDT Resulting Agency Comment Spec In Lab Cherie Schaffer MD IMMUNOLOGY ORDERABLES Performing Organization Address City/State/ZIP Code Phon e Number [address] Cladosporium IgE (03/21/2020 9:14 AM EDT) athologist Signature Cladospor IgE <0.35 kU/L [facility] Comment: Reference Ranges <0.35 kU/L Class 0: ??Normal 0.35-0.69 kU/L Class 1: ??Low level of allergy, indicat erna of ongoing sensitization 0.70-3.49 kU/L Class 2: ??Moderate level of allergy, in dicative of stronger ongoing sensitization 3.50-17.49 kU/L Class 3: ??High level of allergy, indica tive of high level sensitization 17.5-49.9 kU/L Class 4: Very high level of allergy, ind icative of very high level sensitization 50.0-100 kU/L Class 5: Very high level of allergy, ind icative of very high level sensitization >100 kU/L Class 6: Very high level of allergy, ind icative of very high level sensitization Specimen Anatomical Collection Method Collection Time Receive d Time (Source) Location / / Volume Laterality Blood specimen 03/21/2020 9:14 AM 020 1:40 (specimen) EDT PM EDT Resulting Agency Comment Spec In Lab Cherie Schaffer MD IMMUNOLOGY ORDERABLES Performing Organization Address [facility]/RUST Code Phon e Number [address] Aspergillus fumigatus IgE (03/21/2020 9:14 AM EDT) athologist Signature A Fumigatus <0.35 kU/L [facility] LABORATORY Comment: Reference Ranges <0.35 kU/L Class 0: ??Normal 0.35-0.69 kU/L Class 1: ??Low level of allergy, indicat erna of ongoing sensitization 0.70-3.49 kU/L Class 2: ??Moderate level of allergy, in dicative of stronger ongoing sensitization 3.50-17.49 kU/L Class 3: ??High level of allergy, indica tive of high level sensitization 17.5-49.9 kU/L Class 4: Very high level of allergy, ind icative of very high level sensitization 50.0-100 kU/L Class 5: Very high level of allergy, ind icative of very high level sensitization >100 kU/L Class 6: Very high level of allergy, ind icative of very high level sensitization Specimen Anatomical Collection Method Collection Time Receive d Time (Source) Location / / Volume Laterality Blood specimen 03/21/2020 9:14 AM 020 1:40 (specimen) EDT PM EDT Resulting Agency Comment Spec In Lab Cherie Schaffer MD IMMUNOLOGY ORDERABLES Performing Organization Address City/[facility]/[place] [facility] [place] [phone] [facility] [address] Alternaria Tenuis, IgE (03/21/2020 9:14 AM EDT) athologist Signature Alt Alexander IgE <0.35 kU/L [facility] Comment: Reference Ranges <0.35 kU/L Class 0: ??Normal 0.35-0.69 kU/L Class 1: ??Low level of allergy, indicat erna of ongoing sensitization 0.70-3.49 kU/L Class 2: ??Moderate level of allergy, in dicative of stronger ongoing sensitization 3.50-17.49 kU/L Class 3: ??High level of allergy, indica tive of high level sensitization 17.5-49.9 kU/L Class 4: Very high level of allergy, ind icative of very high level sensitization 50.0-100 kU/L Class 5: Very high level of allergy, ind icative of very high level sensitization >100 kU/L Class 6: Very high level of allergy, ind icative of very high level sensitization Specimen Anatomical Collection Method Collection Time Receive d Time (Source) Location / / Volume Laterality Blood specimen 03/21/2020 9:14 AM 020 1:40 (specimen) EDT PM EDT Resulting Agency Comment Spec In Lab Cherie Schaffer MD IMMUNOLOGY ORDERABLES Performing Organization Address City/[facility]/[place] [facility] [place] [phone] House Dust Mites/D.P., IgE (03/21/2020 9:14 AM EDT) athologist Signature Mites/D.P. IgE <0.35 kU/L [facility] Comment: Reference Ranges <0.35 kU/L Class 0: ??Normal 0.35-0.69 kU/L Class 1: ??Low level of allergy, indicat erna of ongoing sensitization 0.70-3.49 kU/L Class 2: ??Moderate level of allergy, in dicative of stronger ongoing sensitization 3.50-17.49 kU/L Class 3: ??High level of allergy, indica tive of high level sensitization 17.5-49.9 kU/L Class 4: Very high level of allergy, ind icative of very high level sensitization 50.0-100 kU/L Class 5: Very high level of allergy, ind icative of very high level sensitization >100 kU/L Class 6: Very high level of allergy, ind icative of very high level sensitization Specimen Anatomical Collection Method Collection Time Receive d Time (Source) Location / / Volume Laterality Blood specimen 03/21/2020 9:14 AM 020 1:40 (specimen) EDT PM EDT Resulting Agency Comment Spec In Lab Cherie Schaffer MD IMMUNOLOGY ORDERABLES Performing Organization Address City/State/ZIP Code Phon e Number [place] [phone] House Dust Mites/D.F., IgE (03/21/2020 9:14 AM EDT) athologist Signature Mites/D.F. IgE <0.35 kU/L [facility] Comment: Reference Ranges <0.35 kU/L Class 0: ??Normal 0.35-0.69 kU/L Class 1: ??Low level of allergy, indicat erna of ongoing sensitization 0.70-3.49 kU/L Class 2: ??Moderate level of allergy, in dicative of stronger ongoing sensitization 3.50-17.49 kU/L Class 3: ??High level of allergy, indica tive of high level sensitization 17.5-49.9 kU/L Class 4: Very high level of allergy, ind icative of very high level sensitization 50.0-100 kU/L Class 5: Very high level of allergy, ind icative of very high level sensitization >100 kU/L Class 6: Very high level of allergy, ind icative of very high level sensitization Specimen Anatomical Collection Method Collection Time Receive d Time (Source) Location / / Volume Laterality Blood specimen 03/21/2020 9:14 AM 020 1:40 (specimen) EDT PM EDT Resulting Agency Comment Spec In Lab Cherie Schaffer MD IMMUNOLOGY ORDERABLES Performing Organization Address City/[facility]/[place] Code Phon e Number [address] Ragweed, short/ common IgE (03/21/2020 9:14 AM EDT) athologist Signature Ragweed IgE <0.35 kU/L [facility] Comment: Reference Ranges <0.35 kU/L Class 0: ??Normal 0.35-0.69 kU/L Class 1: ??Low level of allergy, indicat erna of ongoing sensitization 0.70-3.49 kU/L Class 2: ??Moderate level of allergy, in dicative of stronger ongoing sensitization 3.50-17.49 kU/L Class 3: ??High level of allergy, indica tive of high level sensitization 17.5-49.9 kU/L Class 4: Very high level of allergy, ind icative of very high level sensitization 50.0-100 kU/L Class 5: Very high level of allergy, ind icative of very high level sensitization >100 kU/L Class 6: Very high level of allergy, ind icative of very high level sensitization Specimen Anatomical Collection Method Collection Time Receive d Time (Source) Location / / Volume Laterality Blood specimen 03/21/2020 9:14 AM 020 1:40 (specimen) EDT PM EDT Resulting Agency Comment Spec In Lab Cherie Schaffer MD IMMUNOLOGY ORDERABLES Performing Organization Address City/[facility] Phon e Number [address] Myron Grass IgE (03/21/2020 9:14 AM EDT) P athologist Signature Myron Grass <0.35 kU/L [facility] Comment: Reference Ranges <0.35 kU/L Class 0: ??Normal 0.35-0.69 kU/L Class 1: ??Low level of allergy, indicat erna of ongoing sensitization 0.70-3.49 kU/L Class 2: ??Moderate level of allergy, in dicative of stronger ongoing sensitization 3.50-17.49 kU/L Class 3: ??High level of allergy, indica tive of high level sensitization 17.5-49.9 kU/L Class 4: Very high level of allergy, ind icative of very high level sensitization 50.0-100 kU/L Class 5: Very high level of allergy, ind icative of very high level sensitization >100 kU/L Class 6: Very high level of allergy, ind icative of very high level sensitization Specimen Anatomical Collection Method Collection Time Receive d Time (Source) Location / / Volume Laterality Blood specimen 03/21/2020 9:14 AM 020 1:40 (specimen) EDT PM EDT Resulting Agency Comment Spec In Lab Cherie Schaffer MD IMMUNOLOGY ORDERABLES Performing Organization Address City/State/[place] [address] [facility] [address] Dog Epithelium IgE (03/21/2020 9:14 AM EDT) P athologist Signature Dog Epi IgE <0.35 kU/L [facility] Comment: Reference Ranges <0.35 kU/L Class 0: ??Normal 0.35-0.69 kU/L Class 1: ??Low level of allergy, indicat erna of ongoing sensitization 0.70-3.49 kU/L Class 2: ??Moderate level of allergy, in dicative of stronger ongoing sensitization 3.50-17.49 kU/L Class 3: ??High level of allergy, indica tive of high level sensitization 17.5-49.9 kU/L Class 4: Very high level of allergy, ind icative of very high level sensitization 50.0-100 kU/L Class 5: Very high level of allergy, ind icative of very high level sensitization >100 kU/L Class 6: Very high level of allergy, ind icative of very high level sensitization Specimen Anatomical Collection Method Collection Time Receive d Time (Source) Location / / Volume Laterality Blood specimen 03/21/2020 9:14 AM 020 1:40 (specimen) EDT PM EDT Resulting Agency Comment Spec In Lab Cherie Schaffer MD IMMUNOLOGY ORDERABLES Performing Organization Address City/[facility]/ZIP Code Phon e Number [address] Cat Epithelium IgE (03/21/2020 9:14 AM EDT) athologist Signature Cat Epi IgE <0.35 kU/L [facility] Comment: Reference Ranges <0.35 kU/L Class 0: ??Normal 0.35-0.69 kU/L Class 1: ??Low level of allergy, indicat erna of ongoing sensitization 0.70-3.49 kU/L Class 2: ??Moderate level of allergy, in dicative of stronger ongoing sensitization 3.50-17.49 kU/L Class 3: ??High level of allergy, indica tive of high level sensitization 17.5-49.9 kU/L Class 4: Very high level of allergy, ind icative of very high level sensitization 50.0-100 kU/L Class 5: Very high level of allergy, ind icative of very high level sensitization >100 kU/L Class 6: Very high level of allergy, ind icative of very high level sensitization Specimen Anatomical Collection Method Collection Time Receive d Time (Source) Location / / Volume Laterality Blood specimen 03/21/2020 9:14 AM 020 1:40 (specimen) EDT PM EDT Resulting Agency Comment Spec In Lab Cherie Schaffer MD IMMUNOLOGY ORDERABLES Performing Organization Address City/State/ZIP Code Phon e Number [address] Beech IgE (03/21/2020 9:14 AM EDT) athologist Signature Beech IgE <0.35 kU/L [facility] Comment: Reference Ranges <0.35 kU/L Class 0: ??Normal 0.35-0.69 kU/L Class 1: ??Low level of allergy, indicat erna of ongoing sensitization 0.70-3.49 kU/L Class 2: ??Moderate level of allergy, in dicative of stronger ongoing sensitization 3.50-17.49 kU/L Class 3: ??High level of allergy, indica tive of high level sensitization 17.5-49.9 kU/L Class 4: Very high level of allergy, ind icative of very high level sensitization 50.0-100 kU/L Class 5: Very high level of allergy, ind icative of very high level sensitization >100 kU/L Class 6: Very high level of allergy, ind icative of very high level sensitization Specimen Anatomical Collection Method Collection Time Receive d Time (Source) Location / / Volume Laterality Blood specimen 03/21/2020 9:14 AM 020 1:40 (specimen) EDT PM EDT Resulting Agency Comment Spec In Lab Cherie Schaffer MD IMMUNOLOGY ORDERABLES Performing Organization Address City/State/[place] [address] Elm IgE (03/21/2020 9:14 AM EDT) P athologist Signature Elm IgE <0.35 kU/L [facility] Comment: Reference Ranges <0.35 kU/L Class 0: ??Normal 0.35-0.69 kU/L Class 1: ??Low level of allergy, indicat erna of ongoing sensitization 0.70-3.49 kU/L Class 2: ??Moderate level of allergy, in dicative of stronger ongoing sensitization 3.50-17.49 kU/L Class 3: ??High level of allergy, indica tive of high level sensitization 17.5-49.9 kU/L Class 4: Very high level of allergy, ind icative of very high level sensitization 50.0-100 kU/L Class 5: Very high level of allergy, ind icative of very high level sensitization >100 kU/L Class 6: Very high level of allergy, ind icative of very high level sensitization Specimen Anatomical Collection Method Collection Time Receive d Time (Source) Location / / Volume Laterality Blood specimen 03/21/2020 9:14 AM 020 1:40 (specimen) EDT PM EDT Resulting Agency Comment Spec In Lab Cherie Schaffer MD IMMUNOLOGY ORDERABLES Performing Organization Address City/State/ZIP Code Phon e Number [address] Crane IgE (03/21/2020 9:14 AM EDT) P athologist Signature Crane IgE <0.35 kU/L [facility] Comment: Reference Ranges <0.35 kU/L Class 0: ??Normal 0.35-0.69 kU/L Class 1: ??Low level of allergy, indicat erna of ongoing sensitization 0.70-3.49 kU/L Class 2: ??Moderate level of allergy, in dicative of stronger ongoing sensitization 3.50-17.49 kU/L Class 3: ??High level of allergy, indica tive of high level sensitization 17.5-49.9 kU/L Class 4: Very high level of allergy, ind icative of very high level sensitization 50.0-100 kU/L Class 5: Very high level of allergy, ind icative of very high level sensitization >100 kU/L Class 6: Very high level of allergy, ind icative of very high level sensitization Specimen Anatomical Collection Method Collection Time Receive d Time (Source) Location / / Volume Laterality Blood specimen 03/21/2020 9:14 AM 020 1:40 (specimen) EDT PM EDT Resulting Agency Comment Spec In Lab Cherie Schaffer MD IMMUNOLOGY ORDERABLES Performing Organization Address City/[facility]/ZIP Code Phon e Number [address] Lg, White IgE (03/21/2020 9:14 AM EDT) P athologist Signature White [place] <0.35 kU/L [facility] LABORATORY Comment: Reference Ranges <0.35 kU/L Class 0: ??Normal 0.35-0.69 kU/L Class 1: ??Low level of allergy, indicat erna of ongoing sensitization 0.70-3.49 kU/L Class 2: ??Moderate level of allergy, in dicative of stronger ongoing sensitization 3.50-17.49 kU/L Class 3: ??High level of allergy, indica tive of high level sensitization 17.5-49.9 kU/L Class 4: Very high level of allergy, ind icative of very high level sensitization 50.0-100 kU/L Class 5: Very high level of allergy, ind icative of very high level sensitization >100 kU/L Class 6: Very high level of allergy, ind icative of very high level sensitization Specimen Anatomical Collection Method Collection Time Receive d Time (Source) Location / / Volume Laterality Blood specimen 03/21/2020 9:14 AM 020 1:40 (specimen) EDT PM EDT Resulting Agency Comment Spec In Lab Cherie Schaffer MD IMMUNOLOGY ORDERABLES Performing Organization Address City/[facility]/ZIP Code Phon e Number [address] Ernst, White IgE (03/21/2020 9:14 AM EDT) P athologist Signature White Ernst IgE <0.35 kU/L [facility] Comment: Reference Ranges <0.35 kU/L Class 0: ??Normal 0.35-0.69 kU/L Class 1: ??Low level of allergy, indicat erna of ongoing sensitization 0.70-3.49 kU/L Class 2: ??Moderate level of allergy, in dicative of stronger ongoing sensitization 3.50-17.49 kU/L Class 3: ??High level of allergy, indica tive of high level sensitization 17.5-49.9 kU/L Class 4: Very high level of allergy, ind icative of very high level sensitization 50.0-100 kU/L Class 5: Very high level of allergy, ind icative of very high level sensitization >100 kU/L Class 6: Very high level of allergy, ind icative of very high level sensitization Specimen Anatomical Collection Method Collection Time Receive d Time (Source) Location / / Volume Laterality Blood specimen 03/21/2020 9:14 AM 020 1:40 (specimen) EDT PM EDT Resulting Agency Comment Spec In Lab Cherie Schaffer MD IMMUNOLOGY ORDERABLES Performing Organization Address City/State/ZIP Code Phon e Number [address] [place] / [place] IgE (03/21/2020 9:14 AM EDT) athologist Signature Box <0.35 kU/L [facility] LABORATORY Comment: Reference Ranges <0.35 kU/L Class 0: ??Normal 0.35-0.69 kU/L Class 1: ??Low level of allergy, indicat erna of ongoing sensitization 0.70-3.49 kU/L Class 2: ??Moderate level of allergy, in dicative of stronger ongoing sensitization 3.50-17.49 kU/L Class 3: ??High level of allergy, indica tive of high level sensitization 17.5-49.9 kU/L Class 4: Very high level of allergy, ind icative of very high level sensitization 50.0-100 kU/L Class 5: Very high level of allergy, ind icative of very high level sensitization >100 kU/L Class 6: Very high level of allergy, ind icative of very high level sensitization Specimen Anatomical Collection Method Collection Time Receive d Time (Source) Location / / Volume Laterality Blood specimen 03/21/2020 9:14 AM 020 1:40 (specimen) EDT PM EDT Resulting Agency Comment Spec In Lab Cherie Schaffer MD IMMUNOLOGY ORDERABLES Performing Organization Address City/State/[place] [address] [facility] [address] otmy High IgE (03/21/2020 9:14 AM EDT) athologist Signature Tomy High <0.35 kU/L [facility]ORATORY Comment: Reference Ranges <0.35 kU/L Class 0: ??Normal 0.35-0.69 kU/L Class 1: ??Low level of allergy, indicat erna of ongoing sensitization 0.70-3.49 kU/L Class 2: ??Moderate level of allergy, in dicative of stronger ongoing sensitization 3.50-17.49 kU/L Class 3: ??High level of allergy, indica tive of high level sensitization 17.5-49.9 kU/L Class 4: Very high level of allergy, ind icative of very high level sensitization 50.0-100 kU/L Class 5: Very high level of allergy, ind icative of very high level sensitization >100 kU/L Class 6: Very high level of allergy, ind icative of very high level sensitization Specimen Anatomical Collection Method Collection Time Receive d Time (Source) Location / / Volume Laterality Blood specimen 03/21/2020 9:14 AM 020 1:40 (specimen) EDT PM EDT Resulting Agency Comment Spec In Lab Cherie Schaffer MD IMMUNOLOGY ORDERABLES Performing Organization Address City/[facility]/ZIP Code Phon e Number [address] Tryptase (03/21/2020 9:14 AM EDT) athologist Signature Tryptase 4.4 <=11.1 [facility] ng/mL [facility] Comment: Total tryptase concentrations that are p ersistently greater than 20 ng/mL may be consistent with systemic mastocytosis . Specimen Anatomical Collection Method Collection Time Receive d Time (Source) Location / / Volume Laterality Blood specimen 03/21/2020 9:14 AM 020 1:40 (specimen) EDT PM EDT Resulting Agency Comment Spec In Lab Cherie Schaffer MD CHEMISTRY ORDERABLES Performing Organization Address City/[facility]/ZIP Code Phon e Number [address] Latex IgE (03/21/2020 9:14 AM EDT) P athologist Signature Latex IgE <0.35 kU/L [facility] Comment: Reference Ranges <0.35 kU/L Class 0: ??Normal 0.35-0.69 kU/L Class 1: ??Low level of allergy, indicat erna of ongoing sensitization 0.70-3.49 kU/L Class 2: ??Moderate level of allergy, in dicative of stronger ongoing sensitization 3.50-17.49 kU/L Class 3: ??High level of allergy, indica tive of high level sensitization 17.5-49.9 kU/L Class 4: Very high level of allergy, ind icative of very high level sensitization 50.0-100 kU/L Class 5: Very high level of allergy, ind icative of very high level sensitization Specimen Anatomical Collection Method Collection Time Receive d Time (Source) Location / / Volume Laterality Blood specimen 03/21/2020 9:14 AM 020 1:40 (specimen) EDT PM EDT Resulting Agency Comment Spec In Lab Cherie Schaffer MD IMMUNOLOGY ORDERABLES Performing Organization Address City/State/ZIP Code Phon e Number [address] Onion IgE (03/21/2020 9:14 AM EDT) P athologist Signature Onion IgE <0.35 kU/L [facility] Comment: Class 0 (Negative <0.35) Test Performed by: [place] [address] Industrial Staff Nurse: David Dubose M.D. Ph. D.; CLIA# [id number] Specimen Anatomical Collection Method Collection Time Receive d Time (Source) Location / / Volume Laterality Blood specimen 03/21/2020 9:14 AM 020 (specimen) EDT 12:53 PM EDT Resulting Agency Comment Spec In Lab Cherie Schaffer MD IMMUNOLOGY ORDERABLES Performing Organization Address City/State/ZIP Code Phon e Number [address] Garlic IgE (03/21/2020 9:14 AM EDT) P athologist Signature Garlic IgE <0.35 kU/L [facility] Comment: Class 0 (Negative <0.35) Test [facility]formed [facility]: [facility] [place] [address] Industrial Staff Nurse: David Dubose M.D. Ph. D.; CLIA# [id number] Specimen Anatomical Collection Method Collection Time Receive d Time (Source) Location / / Volume Laterality Blood specimen 03/21/2020 9:14 AM 020 (specimen) EDT 12:53 PM EDT Resulting Agency Comment Spec In Lab Cherie Schaffer MD IMMUNOLOGY ORDERABLES Performing Organization Address City/State/[place] [address] Pineapple IgE (03/21/2020 9:14 AM EDT) athologist Signature Pineapple IgE <0.35 kU/L [facility] Comment: Class 0 (Negative <0.35) Test Performed by: [facility] [address] [place] [address] Industrial Staff Nurse: David Dubose M.D. Ph. D.; CLIA# [id number] Specimen Anatomical Collection Method Collection Time Receive d Time (Source) Location / / Volume Laterality Blood specimen 03/21/2020 9:14 AM 020 (specimen) EDT 12:53 PM EDT Resulting Agency Comment Spec In Lab Cherie Schaffer MD IMMUNOLOGY ORDERABLES Performing Organization Address City/[facility]/[place] Code Phon e Number [address] Grape IgE (03/21/2020 9:14 AM EDT) athologist Signature Grape IgE <0.35 kU/L [facility] Comment: Class 0 (Negative <0.35) Test Performed by: [facility] [address] [place] [address] Industrial Staff Nurse: David Dubose M.D. Ph. D.; CLIA# [id number] Specimen Anatomical Collection Method Collection Time Receive d Time (Source) Location / / Volume Laterality Blood specimen 03/21/2020 9:14 AM 020 (specimen) EDT 12:53 PM EDT Resulting Agency Comment Spec In Lab Cherie Schaffer MD IMMUNOLOGY ORDERABLES Performing Organization Address City/[facility]/[place] [facility] [place] [address] Wheat IgE (03/21/2020 9:14 AM EDT) athologist Signature Wheat IgE <0.35 kU/L [facility] Comment: Reference Ranges <0.35 kU/L Class 0: ??Normal 0.35-0.69 kU/L Class 1: ??Low level of allergy, indicat erna of ongoing sensitization 0.70-3.49 kU/L Class 2: ??Moderate level of allergy, in dicative of stronger ongoing sensitization 3.50-17.49 kU/L Class 3: ??High level of allergy, indica tive of high level sensitization 17.5-49.9 kU/L Class 4: Very high level of allergy, ind icative of very high level sensitization 50.0-100 kU/L Class 5: Very high level of allergy, ind icative of very high level sensitization Specimen Anatomical Collection Method Collection Time Receive d Time (Source) Location / / Volume Laterality Blood specimen 03/21/2020 9:14 AM 020 1:40 (specimen) EDT PM EDT Resulting Agency Comment Spec In Lab Cherie Schaffer MD IMMUNOLOGY ORDERABLES Performing Organization Address City/[facility]/ZIP Code Phon e Number [address] Shrimp IgE (03/21/2020 9:14 AM EDT) athologist Signature Shrimp IgE <0.35 kU/L [facility] Comment: Reference Ranges <0.35 kU/L Class 0: ??Normal 0.35-0.69 kU/L Class 1: ??Low level of allergy, indicat erna of ongoing sensitization 0.70-3.49 kU/L Class 2: ??Moderate level of allergy, in dicative of stronger ongoing sensitization 3.50-17.49 kU/L Class 3: ??High level of allergy, indica tive of high level sensitization 17.5-49.9 kU/L Class 4: Very high level of allergy, ind icative of very high level sensitization 50.0-100 kU/L Class 5: Very high level of allergy, ind icative of very high level sensitization Specimen Anatomical Collection Method Collection Time Receive d Time (Source) Location / / Volume Laterality Blood specimen 03/21/2020 9:14 AM 020 1:40 (specimen) EDT PM EDT Resulting Agency Comment Spec In Lab Cherie Schaffer MD IMMUNOLOGY ORDERABLES Performing Organization Address City/[facility]/ZIP Code Phon e Number [address] Scallop IgE (03/21/2020 9:14 AM EDT) athologist Signature Scallop IgE <0.35 kU/L [facility] Comment: Reference Ranges <0.35 kU/L Class 0: ??Normal 0.35-0.69 kU/L Class 1: ??Low level of allergy, indicat erna of ongoing sensitization 0.70-3.49 kU/L Class 2: ??Moderate level of allergy, in dicative of stronger ongoing sensitization 3.50-17.49 kU/L Class 3: ??High level of allergy, indica tive of high level sensitization 17.5-49.9 kU/L Class 4: Very high level of allergy, ind icative of very high level sensitization 50.0-100 kU/L Class 5: Very high level of allergy, ind icative of very high level sensitization Specimen Anatomical Collection Method Collection Time Receive d Time (Source) Location / / Volume Laterality Blood specimen 03/21/2020 9:14 AM 020 1:40 (specimen) EDT PM EDT Resulting Agency Comment Spec In Lab Cherie Schaffer MD IMMUNOLOGY ORDERABLES Performing Organization Address City/State/[place] [address] [facility] [address] Oyster IgE (03/21/2020 9:14 AM EDT) athologist Signature Oyster IgE <0.35 kU/L [facility] Comment: Reference Ranges <0.35 kU/L Class 0: ??Normal 0.35-0.69 kU/L Class 1: ??Low level of allergy, indicat erna of ongoing sensitization 0.70-3.49 kU/L Class 2: ??Moderate level of allergy, in dicative of stronger ongoing sensitization 3.50-17.49 kU/L Class 3: ??High level of allergy, indica tive of high level sensitization 17.5-49.9 kU/L Class 4: Very high level of allergy, ind icative of very high level sensitization 50.0-100 kU/L Class 5: Very high level of allergy, ind icative of very high level sensitization Specimen Anatomical Collection Method Collection Time Receive d Time (Source) Location / / Volume Laterality Blood specimen 03/21/2020 9:14 AM 020 1:40 (specimen) EDT PM EDT Resulting Agency Comment Spec In Lab Cherie Schaffer MD IMMUNOLOGY ORDERABLES Performing Organization Address City/[facility]/ZIP Code Phon e Number [address] Lobster IgE (03/21/2020 9:14 AM EDT) P athologist Signature Lobster IgE <0.35 kU/L [facility] Comment: Reference Ranges <0.35 kU/L Class 0: ??Normal 0.35-0.69 kU/L Class 1: ??Low level of allergy, indicat erna of ongoing sensitization 0.70-3.49 kU/L Class 2: ??Moderate level of allergy, in dicative of stronger ongoing sensitization 3.50-17.49 kU/L Class 3: ??High level of allergy, indica tive of high level sensitization 17.5-49.9 kU/L Class 4: Very high level of allergy, ind icative of very high level sensitization 50.0-100 kU/L Class 5: Very high level of allergy, ind icative of very high level sensitization Specimen Anatomical Collection Method Collection Time Receive d Time (Source) Location / / Volume Laterality Blood specimen 03/21/2020 9:14 AM 020 1:40 (specimen) EDT PM EDT Resulting Agency Comment Spec In Lab Cherie Schaffer MD IMMUNOLOGY ORDERABLES Performing Organization Address City/[facility]/ZIP Code Phon e Number [address] Crab IgE (03/21/2020 9:14 AM EDT) P athologist Signature Crab IgE <0.35 kU/L [facility] Comment: Reference Ranges <0.35 kU/L Class 0: ??Normal 0.35-0.69 kU/L Class 1: ??Low level of allergy, indicat erna of ongoing sensitization 0.70-3.49 kU/L Class 2: ??Moderate level of allergy, in dicative of stronger ongoing sensitization 3.50-17.49 kU/L Class 3: ??High level of allergy, indica tive of high level sensitization 17.5-49.9 kU/L Class 4: Very high level of allergy, ind icative of very high level sensitization 50.0-100 kU/L Class 5: Very high level of allergy, ind icative of very high level sensitization Specimen Anatomical Collection Method Collection Time Receive d Time (Source) Location / / Volume Laterality Blood specimen 03/21/2020 9:14 AM 020 1:40 (specimen) EDT PM EDT Resulting Agency Comment Spec In Lab Cherie Schaffer MD IMMUNOLOGY ORDERABLES Performing Organization Address City/[facility]/ZIP Code Phon e Number [address] Clams IgE (03/21/2020 9:14 AM EDT) athologist Signature Clams IgE <0.35 kU/L [facility] Comment: Reference Ranges <0.35 kU/L Class 0: ??Normal 0.35-0.69 kU/L Class 1: ??Low level of allergy, indicat eran of ongoing sensitization 0.70-3.49 kU/L Class 2: ??Moderate level of allergy, in dicative of stronger ongoing sensitization 3.50-17.49 kU/L Class 3: ??High level of allergy, indica tive of high level sensitization 17.5-49.9 kU/L Class 4: Very high level of allergy, ind icative of very high level sensitization 50.0-100 kU/L Class 5: Very high level of allergy, ind icative of very high level sensitization Specimen Anatomical Collection Method Collection Time Receive d Time (Source) Location / / Volume Laterality Blood specimen 03/21/2020 9:14 AM 020 1:40 (specimen) EDT PM EDT Resulting Agency Comment Spec In Lab Cherie Schaffer MD IMMUNOLOGY ORDERABLES Performing Organization Address City/[facility]/ZIP Code Phon e Number [address] C4 Complement (03/21/2020 9:14 AM EDT) athologist Signature C4 Complement 24 10 - 40 [facility] mg/dL [facility] Specimen Anatomical Collection Method Collection Time Receive d Time (Source) Location / / Volume Laterality Blood specimen 03/21/2020 9:14 AM 020 9:20 (specimen) EDT AM EDT Resulting Agency Comment Spec In Lab Cherie Schaffer MD CHEMISTRY ORDERABLES Performing Organization Address City/State/[place] [address] documented in this encounter Visit Diagnoses Diagnosis Chronic rhinitis Adverse food reaction, initial encounter Chronic abdominal pain Abdominal pain, unspecified site Gastroesophageal reflux disease, esophag itis presence not specified Sensation of swollen throat Other symptoms involving head and neck History of eosinophilia Personal history of diseases of blood an d blood-forming organs documented in this encounter Care Teams Snow Blower Relationship Specialty Start Date End Date Mike Mosher MD PCP - General General Internal Medicine 02/11/[address] [place] [id number] documented as of this encounter
--- OUTSIDE RECORDS SUMMARY | 2022-04-23 02:34 | XMS_ITS | Encounter Summary ---
:1970 Author Organization [facility] [place] [address] Care Team Providers Name Role Phone Mike Mosher MD Primary Care Provider Encounter Details Date Type Department Care Team Description 03/21/2020 Laboratory Lab 3L Veness[place] Chronic rhiniti s; Appointment [facility] Adverse f ood reaction, initial encounter; [facility] Chronic abdominal pain; [facility] Gastroeso phageal reflux disease, esophagitis presence not specified; Drive Sensation of swollen throat; [place], [place] History of eosi nophilia [id number] Social History Tobacco Use Types Packs/Day Years [...] Procedure Name Priority Date/Time Associated Diagnosis Comme nts HC ALLERGEN (IGE), Routine 03/21/2020 9:14 AM Chronic rh initis Results for this LEVEL 1 EDT Adverse food procedure are i n reaction, initial the result s encounter section. Chronic abdominal pain Gastroesophageal reflux disease, esophagitis presence not specified Sensation of swollen throat HC ALLERGEN (IGE), Routine 03/21/2020 9:14 AM Chronic rh initis Results for this LEVEL 1 EDT Adverse food procedure are i n reaction, initial the result s encounter section. Chronic abdominal pain HC ALLERGEN (IGE), Routine 03/21/2020 9:14 AM Chronic rh initis Results for this LEVEL 1 EDT Adverse food procedure are i n reaction, initial the result s encounter section. Chronic abdominal pain Gastroesophageal reflux disease, esophagitis presence not specified Sensation of swollen throat HC ALLERGEN (IGE), Routine 03/21/2020 9:14 AM Chronic rh initis Results for this LEVEL 1 EDT Adverse food procedure are i n reaction, initial the result s encounter section. Chronic abdominal pain Gastroesophageal reflux disease, esophagitis presence not specified Sensation of swollen throat HC ALLERGEN (IGE), Routine 03/21/2020 9:14 AM Chronic rh initis Results for this LEVEL 1 EDT Adverse food procedure are i n reaction, initial the result s encounter section. Chronic abdominal pain Gastroesophageal reflux disease, esophagitis presence not specified Sensation of swollen throat HC ALLERGEN (IGE), Routine 03/21/2020 9:14 AM Chronic rh initis Results for this LEVEL 1 EDT Adverse food procedure are i n reaction, initial the result s encounter section. Chronic abdominal pain Gastroesophageal reflux disease, esophagitis presence not specified Sensation of swollen throat HC ALLERGEN (IGE), Routine 03/21/2020 9:14 AM Chronic rh initis Results for this LEVEL 1 EDT Adverse food procedure are i n reaction, initial the result s encounter section. Chronic abdominal pain HC ALLERGEN (IGE), Routine 03/21/2020 9:14 AM Chronic rh initis Results for this LEVEL 1 EDT Adverse food procedure are i n reaction, initial the result s encounter section. Chronic abdominal pain Gastroesophageal reflux disease, esophagitis presence not specified Sensation of swollen throat HEMOGRAM Routine 03/21/2020 9:14 AM History of Results f or this EDT eosinophilia procedure are i n the results section. DIFFERENTIAL, Routine 03/21/2020 9:14 AM History of Results for this AUTOMATED EDT eosinophilia procedure are i n the results section. HC ALLERGEN (IGE), Routine 03/21/2020 9:14 AM Chronic rh initis Results for this LEVEL 1 EDT Adverse food procedure are i n reaction, initial the result s encounter section. Chronic abdominal pain Gastroesophageal reflux disease, esophagitis presence not specified Sensation of swollen throat HC ALLERGEN (IGE), Routine 03/21/2020 9:14 AM Chronic rh initis Results for this LEVEL 1 EDT Adverse food procedure are i n reaction, initial the result s encounter section. Chronic abdominal pain Gastroesophageal reflux disease, esophagitis presence not specified Sensation of swollen throat HC TRYPTASE Routine 03/21/2020 9:14 AM Chronic rhini tis Results for this EDT Adverse food procedure are i n reaction, initial the result s encounter section. Chronic abdominal pain Gastroesophageal reflux disease, esophagitis presence not specified Sensation of swollen throat HC ALLERGEN (IGE), Routine 03/21/2020 9:14 AM Chronic rh initis Results for this LEVEL 1 EDT Adverse food procedure are i n reaction, initial the result s encounter section. Chronic abdominal pain Gastroesophageal reflux disease, esophagitis presence not specified Sensation of swollen throat HC ALLERGEN (IGE), Routine 03/21/2020 9:14 AM Chronic rh initis Results for this LEVEL 1 EDT Adverse food procedure are i n reaction, initial the result s encounter section. Chronic abdominal pain Gastroesophageal reflux disease, esophagitis presence not specified Sensation of swollen throat HC ALLERGEN (IGE), Routine 03/21/2020 9:14 AM Chronic rh initis Results for this LEVEL 1 EDT Adverse food procedure are i n reaction, initial the result s encounter section. Chronic abdominal pain Gastroesophageal reflux disease, esophagitis presence not specified Sensation of swollen throat HC ALLERGEN (IGE), Routine 03/21/2020 9:14 AM Chronic rh initis Results for this LEVEL 1 EDT Adverse food procedure are i n reaction, initial the result s encounter section. Chronic abdominal pain HC ALLERGEN (IGE), Routine 03/21/2020 9:14 AM Chronic rh initis Results for this LEVEL 1 EDT Adverse food procedure are i n reaction, initial the result s encounter section. Chronic abdominal pain Gastroesophageal reflux disease, esophagitis presence not specified Sensation of swollen throat HC ALLERGEN (IGE), Routine 03/21/2020 9:14 AM Chronic rh initis Results for this LEVEL 1 EDT Adverse food procedure are i n reaction, initial the result s encounter section. Chronic abdominal pain Gastroesophageal reflux disease, esophagitis presence not specified Sensation of swollen throat HC ALLERGEN (IGE), Routine 03/21/2020 9:14 AM Chronic rh initis Results for this LEVEL 1 EDT Adverse food procedure are i n reaction, initial the result s encounter section. Chronic abdominal pain Gastroesophageal reflux disease, esophagitis presence not specified Sensation of swollen throat HC ALLERGEN (IGE), Routine 03/21/2020 9:14 AM Chronic rh initis Results for this LEVEL 1 EDT Adverse food procedure are i n reaction, initial the result s encounter section. Chronic abdominal pain Gastroesophageal reflux disease, esophagitis presence not specified Sensation of swollen throat HC ALLERGEN (IGE), Routine 03/21/2020 9:14 AM Chronic rh initis Results for this LEVEL 1 EDT Adverse food procedure are i n reaction, initial the result s encounter section. Chronic abdominal pain Gastroesophageal reflux disease, esophagitis presence not specified Sensation of swollen throat HC ALLERGEN (IGE), Routine 03/21/2020 9:14 AM Chronic rh initis Results for this LEVEL 1 EDT Adverse food procedure are i n reaction, initial the result s encounter section. Chronic abdominal pain Gastroesophageal reflux disease, esophagitis presence not specified Sensation of swollen throat HC ALLERGEN (IGE), Routine 03/21/2020 9:14 AM Chronic rh initis Results for this LEVEL 1 EDT Adverse food procedure are i n reaction, initial the result s encounter section. Chronic abdominal pain Gastroesophageal reflux disease, esophagitis presence not specified Sensation of swollen throat HC ALLERGEN (IGE), Routine 03/21/2020 9:14 AM Chronic rh initis Results for this LEVEL 1 EDT Adverse food procedure are i n reaction, initial the result s encounter section. Chronic abdominal pain Gastroesophageal reflux disease, esophagitis presence not specified Sensation of swollen throat HC ALLERGEN (IGE), Routine 03/21/2020 9:14 AM Chronic rh initis Results for this LEVEL 1 EDT Adverse food procedure are i n reaction, initial the result s encounter section. Chronic abdominal pain Gastroesophageal reflux disease, esophagitis presence not specified Sensation of swollen throat HC PCH ALLERGEN Routine 03/21/2020 9:14 AM Chronic rhini tis Results for this (LGE) LEVEL 1 EDT Adverse food procedure are in reaction, initial the result s encounter section. Chronic abdominal pain Gastroesophageal reflux disease, esophagitis presence not specified Sensation of swollen throat HC ALLERGEN (IGE), Routine 03/21/2020 9:14 AM Chronic rh initis Results for this LEVEL 1 EDT Adverse food procedure are i n reaction, initial the result s encounter section. Chronic abdominal pain Gastroesophageal reflux disease, esophagitis presence not specified Sensation of swollen throat HC PCH ALLERGEN Routine 03/21/2020 9:14 AM Chronic rhini tis Results for this (LGE) LEVEL 1 EDT Adverse food procedure are in reaction, initial the result s encounter section. Chronic abdominal pain Gastroesophageal reflux disease, esophagitis presence not specified Sensation of swollen throat HC ALLERGEN (IGE), Routine 03/21/2020 9:14 AM Chronic rh initis Results for this LEVEL 1 EDT Adverse food procedure are i n reaction, initial the result s encounter section. Chronic abdominal pain Gastroesophageal reflux disease, esophagitis presence not specified Sensation of swollen throat HC ALLERGEN (IGE), Routine 03/21/2020 9:14 AM Chronic rh initis Results for this LEVEL 1 EDT Adverse food procedure are i n reaction, initial the result s encounter section. Chronic abdominal pain Gastroesophageal reflux disease, esophagitis presence not specified Sensation of swollen throat HC ALLERGEN (IGE), Routine 03/21/2020 9:14 AM Chronic rh initis Results for this LEVEL 1 EDT Adverse food procedure are i n reaction, initial the result s encounter section. Chronic abdominal pain Gastroesophageal reflux disease, esophagitis presence not specified Sensation of swollen throat HC ALLERGEN (IGE), Routine 03/21/2020 9:14 AM Chronic rh initis Results for this LEVEL 1 EDT Adverse food procedure are i n reaction, initial the result s encounter section. Chronic abdominal pain Gastroesophageal reflux disease, esophagitis presence not specified Sensation of swollen throat HC ALLERGEN (IGE), Routine 03/21/2020 9:14 AM Chronic rh initis Results for this LEVEL 1 EDT Adverse food procedure are i n reaction, initial the result s encounter section. Chronic abdominal pain Gastroesophageal reflux disease, esophagitis presence not specified Sensation of swollen throat HC ALLERGEN (IGE), Routine 03/21/2020 9:14 AM Chronic rh initis Results for this LEVEL 1 EDT Adverse food procedure are i n reaction, initial the result s encounter section. Chronic abdominal pain Gastroesophageal reflux disease, esophagitis presence not specified Sensation of swollen throat HC ALLERGEN (IGE), Routine 03/21/2020 9:14 AM Chronic rh initis Results for this LEVEL 1 EDT Adverse food procedure are i n reaction, initial the result s encounter section. Chronic abdominal pain Gastroesophageal reflux disease, esophagitis presence not specified Sensation of swollen throat HC ALLERGEN (IGE), Routine 03/21/2020 9:14 AM Chronic rh initis Results for this LEVEL 1 EDT Adverse food procedure are i n reaction, initial the result s encounter section. Chronic abdominal pain Gastroesophageal reflux disease, esophagitis presence not specified Sensation of swollen throat HC ALLERGEN (IGE), Routine 03/21/2020 9:14 AM Chronic rh initis Results for this LEVEL 1 EDT Adverse food procedure are i n reaction, initial the result s encounter section. Chronic abdominal pain Gastroesophageal reflux disease, esophagitis presence not specified Sensation of swollen throat HC ALLERGEN (IGE), Routine 03/21/2020 9:14 AM Chronic rh initis Results for this LEVEL 1 EDT Adverse food procedure are i n reaction, initial the result s encounter section. Chronic abdominal pain Gastroesophageal reflux disease, esophagitis presence not specified Sensation of swollen throat HC ALLERGEN (IGE), Routine 03/21/2020 9:14 AM Chronic rh initis Results for this LEVEL 1 EDT Adverse food procedure are i n reaction, initial the result s encounter section. Chronic abdominal pain Gastroesophageal reflux disease, esophagitis presence not specified Sensation of swollen throat HC PCH ALLERGEN Routine 03/21/2020 9:14 AM Chronic rhini tis Results for this (LGE) LEVEL 1 EDT Adverse food procedure are in reaction, initial the result s encounter section. Chronic abdominal pain Gastroesophageal reflux disease, esophagitis presence not specified Sensation of swollen throat HC ALLERGEN (IGE), Routine 03/21/2020 9:14 AM Chronic rh initis Results for this LEVEL 1 EDT Adverse food procedure are i n reaction, initial the result s encounter section. Chronic abdominal pain Gastroesophageal reflux disease, esophagitis presence not specified Sensation of swollen throat HC PCH ALLERGEN Routine 03/21/2020 9:14 AM Chronic rhini tis Results for this (LGE) LEVEL 1 EDT Adverse food procedure are in reaction, initial the result s encounter section. Chronic abdominal pain Gastroesophageal reflux disease, esophagitis presence not specified Sensation of swollen throat HC CBC,PLT & AUTO Routine 03/21/2020 9:14 AM History of DIFF EDT eosinophilia HC COMPLEMENT C4, Routine 03/21/2020 9:14 AM Chronic rhi nitis Results for this PLASMA EDT Adverse food procedure are i n reaction, initial the result s encounter section. Chronic abdominal pain Gastroesophageal reflux disease, esophagitis presence not specified Sensation of swollen throat documented in this encounter Results Differential, Automated (03/21/2020 9:14 AM EDT) athologist Signature Neutrophils % 55.4 % [facility] Neutr Abs (ANC) 2.08 1.70 - [facility] 6.10 [facility] x10(3)/[facility] LABORATORY Lymphocytes % 31.1 % [facility] Lymphocytes Abs 1.2 0.9 - 3.2 [facility] x10(3)/[facility] LABORATORY Monocytes % 10.9 % [facility] Monocyte Abs 0.4 0.3 - 0.9 [facility] x10(3)/[facility] LABORATORY Eosinophils % 1.3 % [facility] Eosinophils Abs 0.0 0.0 - 0.4 [facility] x10(3)/[facility] LABORATORY Basophils % 1.3 % [facility] Basophils Abs 0.0 0.0 - 0.1 [facility] x10(3)/[facility] LABORATORY Immature Gran % 0.00 % [facility] Comment: Immature granulocytes(IG's)percentage an d absolute count will include metamyelocytes, myelocytes, and promyelo cytes. Blood smears from CBCs yielding IG's will be scanned manually for concor dance. If this scan disagrees with the automated IG or if promyelocytes are not ed, a manual differential will be performed. Marisa Gran Abs 0.00 0.00 - 0.04 x10(3)/[facility] MAR Y [facility]ORATORY Specimen Anatomical Collection Method Collection Time Receive d Time (Source) Location / / Volume Laterality Blood specimen 03/21/2020 9:14 AM 020 9:20 (specimen) EDT AM EDT Resulting Agency Comment Spec In Lab Cherie Schaffer MD HEMATOLOGY ORDERABLES Performing Organization Address City/State/ZIP Code Phon e Number [place] [phone] [facility]ORY [address] (ABNORMAL) Hemogram (03/21/2020 9:14 AM EDT) P athologist Signature WBC 3.8 (L) 4.0 - 9.5 [facility] x10(3)/[facility] LABORATORY RBC 5.30 4.58 - [facility] 5.54 [facility] x10(6)/[facility] LABORATORY Hemoglobin 16.0 13.7 - [facility] gm/dL [facility] Hematocrit 47.0 40.5 - [facility] 48.5 % [facility] MCV 88.7 82.9 - [facility] 93.1 fL [facility] MCH 30.2 27.5 - [facility] 32.1 pg [facility] MCHC 34.0 32.0 - [facility] 35.7 gm/dL [facility] Platelets 195 145 - 357 [facility] x10(3)/[facility] LABORATORY RDWSD 37.2 36.0 - [facility] [place] 45.0 [facility] LABORATORY RDWCV 11.5 11.4 - [facility] JOANNA 13.8 % [facility]OR[facility] MPV 10.1 7.6 - 12.9 [facility] JOANNA [facility] LABORATORY nRBC % Auto 0.0 % [facility] nRBC Abs Auto 0.000 0.000 - [facility] 0.000 [facility] x10(3)/[facility] LABORATORY Specimen Anatomical Collection Method Collection Time Receive d Time (Source) Location / / Volume Laterality Blood specimen 03/21/2020 9:14 AM 9:20 (specimen) EDT AM EDT Resulting Agency Comment Spec In Lab Cherie Schaffer MD HEMATOLOGY ORDERABLES Performing Organization Address City/[facility]/ZIP Code Phon e Number [address] C4 Complement (03/21/2020 9:14 AM EDT) athologist Signature C4 Complement 24 10 - 40 [facility] Specimen Anatomical Collection Method Collection Time Receive d Time (Source) Location / / Volume Laterality Blood specimen 03/21/2020 9:14 AM 020 9:20 (specimen) EDT AM EDT Resulting Agency Comment Spec In Lab Cherie Schaffer MD CHEMISTRY ORDERABLES Performing Organization Address City/[facility] Phon e Number [address] Clams IgE (03/21/2020 9:14 AM EDT) P athologist Signature Clams IgE <0.35 kU/L [facility] Comment: Reference Ranges <0.35 kU/L [...] Schaffer MD IMMUNOLOGY ORDERABLES Performing Organization Address City/[facility]/ZIP Code Phon e Number [address] Crab IgE (03/21/2020 9:14 AM EDT) athologist Signature Crab IgE <0.35 kU/L [facility] Comment: Reference Ranges <0.35 kU/L [...] Organization Address City/State/ZIP Code Phon e Number [address] Lobster IgE (03/21/2020 9:14 AM EDT) athologist Signature Lobster IgE <0.35 kU/L [facility] Comment: Reference Ranges <0.35 kU/L [...] Organization Address City/State/ZIP Code Phon e Number [address] Oyster IgE (03/21/2020 9:14 AM EDT) athologist Signature Oyster IgE <0.35 kU/L [facility] Comment: Reference Ranges <0.35 kU/L [...] Schaffer MD IMMUNOLOGY ORDERABLES Performing Organization Address City/[facility]/ZIP Code Phon e Number [address] Scallop IgE (03/21/2020 9:14 AM EDT) P athologist Signature Scallop IgE <0.35 kU/L [facility] Comment: Reference Ranges <0.35 kU/L [...] Schaffer MD IMMUNOLOGY ORDERABLES Performing Organization Address City/[facility]/ZIP Code Phon e Number [address] Shrimp IgE (03/21/2020 9:14 AM EDT) P athologist Signature Shrimp IgE <0.35 kU/L [facility] Comment: Reference Ranges <0.35 kU/L [...] Schaffer MD IMMUNOLOGY ORDERABLES Performing Organization Address City/[facility]/ZIP [facility] Phon e Number [address] Wheat IgE (03/21/2020 9:14 AM EDT) P athologist Signature Wheat IgE <0.35 kU/L [facility] Comment: Reference Ranges <0.35 kU/L [...] Schaffer MD IMMUNOLOGY ORDERABLES Performing Organization Address City/[facility]/ZIP [facility] Phon e Number [address] Grape IgE (03/21/2020 9:14 AM EDT) P athologist Signature Grape IgE <0.35 kU/L [facility] Comment: Class 0 (Negative <0.35) Test Performed by: [facility] [address] [place] [address] [employer] Driver: David Dubose M.D. Ph. D.; CLIA# [id number] Specimen Anatomical Collection Method Collection Time Receive d Time (Source) Location / / Volume Laterality Blood specimen 03/21/2020 9:14 AM 020 (specimen) EDT 12:53 PM EDT Resulting Agency Comment Spec In Lab Cherie Schaffer MD IMMUNOLOGY ORDERABLES Performing Organization Address City/[facility] Phon e Number [address] Pineapple IgE (03/21/2020 9:14 AM EDT) P athologist Signature Pineapple IgE <0.35 kU/L [facility] Comment: Class 0 (Negative <0.35) Test Performed by: [facility] [address] [place] [address] [employer] Driver: David Dubose M.D. Ph. D.; CLIA# [id number] Specimen Anatomical Collection Method Collection Time Receive d Time (Source) Location / / Volume Laterality Blood specimen 03/21/2020 9:14 AM 020 (specimen) EDT 12:53 PM EDT Resulting Agency Comment Spec In Lab Cherie Schaffer MD IMMUNOLOGY ORDERABLES Performing Organization Address City/[facility]/ZIP Code Phon e Number [address] Garlic IgE (03/21/2020 9:14 AM EDT) P athologist Signature Garlic IgE <0.35 kU/L [facility] Comment: Class 0 (Negative <0.35) Test Performed by: [facility] [address] [place] [address] [employer] Driver: David Dubose M.D. Ph. D.; CLIA# [id number] Specimen Anatomical Collection Method Collection Time Receive d Time (Source) Location / / Volume Laterality Blood specimen 03/21/2020 9:14 AM 020 (specimen) EDT 12:53 PM EDT Resulting Agency Comment Spec In Lab Cherie Schaffer MD IMMUNOLOGY ORDERABLES Performing Organization Address City/[facility]/ZIP Code Phon e Number [place] [phone] [facility] LAB[address]ORY Drive Onion IgE (03/21/2020 9:14 AM EDT) athologist Signature Onion IgE <0.35 kU/L [facility] Comment: Class 0 (Negative <0.35) Test Performed by: [facility] [address] , [place], [place] [address] [employer] Driver: David Dubose M.D. Ph. D.; CLIA# [id number] Specimen Anatomical Collection Method Collection Time Receive d Time (Source) Location / / Volume Laterality Blood specimen 03/21/2020 9:14 AM 020 (specimen) EDT 12:53 PM EDT Resulting Agency Comment Spec In Lab Cherie Schaffer MD IMMUNOLOGY ORDERABLES Performing Organization Address City/State/[place] [address] Latex IgE (03/21/2020 9:14 AM EDT) athologist Signature Latex IgE <0.35 kU/L [facility] Comment: Reference Ranges <0.35 kU/L [...] Schaffer MD IMMUNOLOGY ORDERABLES Performing Organization Address City/[facility]/ZIP Code Phon e Number [address] Tryptase (03/21/2020 9:14 AM EDT) P athologist Signature Tryptase 4.4 <=11.1 [facility]/mL [facility] Comment: Total tryptase concentrations that are p ersistently greater than 20 ng/mL may be consistent with systemic mastocytosis . Specimen Anatomical Collection Method Collection Time Receive d Time (Source) Location / / Volume Laterality Blood specimen 03/21/2020 9:14 AM 020 1:40 (specimen) EDT PM EDT Resulting Agency Comment Spec In Lab Cherie Schaffer MD CHEMISTRY ORDERABLES Performing Organization Address City/[facility]/ZIP Code Phon e Number [address] Birch, silver IgE (03/21/2020 9:14 AM EDT) P athologist Signature Silver Birch <0.35 kU/L [facility] IgE [facility] Comment: Reference Ranges <0.35 kU/L [...] Organization Address City/State/ZIP Code Phon e Number [address] Hilda / Charli Franco IgE (03/21/2020 9:14 AM EDT) P athologist Signature Box <0.35 kU/L [facility] LABORATORY Comment: Reference Ranges <0.35 kU/L [...] Schaffer MD IMMUNOLOGY ORDERABLES Performing Organization Address City/[facility]/ZIP Code Phon e Number [address] Ernst, White IgE (03/21/2020 9:14 AM EDT) P athologist Signature White Ernst IgE <0.35 kU/L [facility] Comment: Reference Ranges <0.35 kU/L [...] Schaffer MD IMMUNOLOGY ORDERABLES Performing Organization Address City/[facility] [facility] Code Phon e Number [place] [phone] [facility] [address] Christelle Castanon IgE (03/21/2020 9:14 AM EDT) athologist Signature Christelle Castanon <0.35 kU/L [facility] LABORATORY Comment: Reference Ranges <0.35 kU/L Class [...] Organization Address City/State/ZIP Code Phon e Number [address] [place] IgE (03/21/2020 9:14 AM EDT) athologist Signature [place] IgE <0.35 kU/L [facility] LABORATORY Comment: Reference Ranges <0.35 kU/L [...] Organization Address City/State/ZIP Code Phon e Number [address] [place] IgE (03/21/2020 9:14 AM EDT) athologist Signature [place] IgE <0.35 kU/L [facility] LABORATORY Comment: Reference Ranges <0.35 kU/L [...] Schaffer MD IMMUNOLOGY ORDERABLES Performing Organization Address City/[facility]/ZIP Code Phon e Number [address] [place] IgE (03/21/2020 9:14 AM EDT) athologist Signature [place] IgE <0.35 kU/L [facility] LABORATORY Comment: Reference Ranges <0.35 kU/L [...] Schaffer MD IMMUNOLOGY ORDERABLES Performing Organization Address City/[facility]/ZIP Code Phon e Number [address] Cat Epithelium IgE (03/21/2020 9:14 AM EDT) athologist Signature Cat Epi IgE <0.35 kU/L [facility] LABORATORY Comment: Reference Ranges <0.35 kU/L [...] Organization Address City/State/ZIP Code Phon e Number [address] Dog Epithelium IgE (03/21/2020 9:14 AM EDT) P athologist Signature Dog Epi IgE <0.35 kU/L [facility] LABORATORY Comment: Reference Ranges <0.35 kU/L [...] Schaffer MD IMMUNOLOGY ORDERABLES Performing Organization Address City/[facility]/ZIP Code Phon e Number [address] [place] IgE (03/21/2020 9:14 AM EDT) athologist Signature [place] <0.35 kU/L [facility] LABORATORY Comment: Reference Ranges <0.35 kU/L Class [...] Schaffer MD IMMUNOLOGY ORDERABLES Performing Organization Address City/[facility]/ZIP Code Phon e Number [address] Ragweed, short/ common IgE (03/21/2020 9:14 AM EDT) P athologist Signature [place] IgE <0.35 kU/L [facility] LABORATORY Comment: Reference Ranges <0.35 kU/L [...] Organization Address City/State/[place] [address] House Dust Mites/D.F., IgE (03/21/2020 9:14 AM EDT) athologist Signature Mites/D.F. IgE <0.35 kU/L [facility] LABORATORY Comment: Reference Ranges <0.35 kU/L [...] Schaffer MD IMMUNOLOGY ORDERABLES Performing Organization Address City/[facility]/ZIP Code Phon e Number [address] House Dust Mites/D.P., IgE (03/21/2020 9:14 AM EDT) athologist Signature Mites/D.P. IgE <0.35 kU/L [facility] LABORATORY Comment: Reference Ranges <0.35 kU/L [...] Schaffer MD IMMUNOLOGY ORDERABLES Performing Organization Address City/[facility]/ZIP Code Phon e Number [address] Alternaria Tenuis, IgE (03/21/2020 9:14 AM EDT) athologist Signature Alt Tenuis IgE <0.35 kU/L [facility] LABORATORY Comment: Reference Ranges <0.35 kU/L [...] Schaffer MD IMMUNOLOGY ORDERABLES Performing Organization Address City/[facility] Phon e Number [address] Aspergillus fumigatus IgE (03/21/2020 9:14 AM EDT) athologist Signature A Fumigatus <0.35 kU/L [facility] LABORATORY Comment: Reference Ranges <0.35 kU/L Class [...] Organization Address City/State/ZIP Code Phon e Number [address] Cladosporium IgE (03/21/2020 9:14 AM EDT) athologist Signature Cladospor IgE <0.35 kU/L [facility] LABORATORY Comment: Reference Ranges <0.35 kU/L [...] Organization Address City/State/ZIP Code Phon e Number [address] Penicillium IgE (03/21/2020 9:14 AM EDT) athologist Signature Penicillium IgE <0.35 kU/L [facility] LABORATORY Comment: Reference Ranges <0.35 kU/L [...] Organization Address City/State/ZIP Code Phon e Number [address] Helminthosporium Halodes, IgE (03/21/2020 9:14 AM EDT) P athologist Signature H halodes, IgE <0.35 kU/L [facility] LABORATORY Comment: Reference Ranges <0.35 kU/L [...] Schaffer MD IMMUNOLOGY ORDERABLES Performing Organization Address City/[facility]/ZIP [facility] Phon e Number [address] Mugwort IgE (03/21/2020 9:14 AM EDT) athologist Signature Mug[place] IgE <0.35 kU/L [facility] LABORATORY Comment: Reference Ranges <0.35 kU/L [...] Organization Address City/State/ZIP Code Phon e Number [address] Pigweed, Rough IgE (03/21/2020 9:14 AM EDT) athologist Signature Rough Pigweed <0.35 kU/L [facility] LABORATORY Comment: Reference Ranges <0.35 kU/L Class [...] Schaffer MD IMMUNOLOGY ORDERABLES Performing Organization Address City/[facility]/[place] [address] [place] IgE (03/21/2020 9:14 AM EDT) P athologist Signature [place] <0.35 kU/L [facility] LABORATORY Comment: Reference Ranges <0.35 kU/L Class [...] Schaffer MD IMMUNOLOGY ORDERABLES Performing Organization Address City/[facility]/ZIP Code Phon e Number [address] [place] Plantain, IgE (03/21/2020 9:14 AM EDT) P athologist Signature [place] <0.35 kU/L [facility] LABORATORY Comment: Reference Ranges <0.35 kU/L [...] Schaffer MD IMMUNOLOGY ORDERABLES Performing Organization Address City/[facility]/ZIP Code Phon e Number [address] [place], IgE (03/21/2020 9:14 AM EDT) athologist Signature [place] IgE <0.35 kU/L [facility] LABORATORY Comment: Reference Ranges <0.35 kU/L [...] Organization Address City/State/ZIP Code Phon e Number [address] [place] IgE (03/21/2020 9:14 AM EDT) athologist Signature Clari grass, <0.35 kU/L [facility] LABORATORY Comment: Reference Ranges <0.35 kU/L Class [...] Organization Address City/State/ZIP Code Phon e Number [address] Mouse, Epithelium IgE (03/21/2020 9:14 AM EDT) athologist Signature Mouse Epi IgE <0.35 kU/L [facility] LABORATORY Comment: Reference Ranges <0.35 kU/L [...] Schaffer MD IMMUNOLOGY ORDERABLES Performing Organization Address City/[facility]/ZIP Code Phon e Number [address] Maya Kindra, IgE (03/21/2020 9:14 AM EDT) athologist Signature Francesco Arguelles, <0.35 kU/L [facility] LABORATORY Comment: Reference Ranges <0.35 kU/L Class [...] Schaffer MD CHEMISTRY ORDERABLES Performing Organization Address City/[facility]/ZIP Code Phon e Number [address] [place], IgE (03/21/2020 9:14 AM EDT) P athologist Signature Eastern <0.35 kU/L [facility] LABORATORY Comment: Reference Ranges <0.35 kU/L Class [...] Schaffer MD IMMUNOLOGY ORDERABLES Performing Organization Address City/[facility] [place] [address] [place] IgE (03/21/2020 9:14 AM EDT) P athologist Signature [place] <0.35 kU/L [facility] LABORATORY Comment: Reference Ranges <0.35 kU/L Class [...] Schaffer MD IMMUNOLOGY ORDERABLES Performing Organization Address City/[facility]/ZIP Code Phon e Number [address] documented in this encounter Visit Diagnoses Diagnosis Chronic rhinitis Adverse food reaction, initial encounter Chronic abdominal pain Abdominal pain, unspecified site Gastroesophageal reflux disease, esophag itis presence not specified Sensation of swollen throat Other symptoms involving head and neck History of eosinophilia Personal history of diseases of blood an d blood-forming organs documented in this encounter Care Teams Tooth Inspector Relationship Specialty Start Date End Date Mike Mosher MD PCP - General General Internal Medicine 02/11/[address] [place] [id number] documented as of this encounter
--- OUTSIDE RECORDS SUMMARY | 2022-04-23 02:34 | XMS_ITS | Encounter Summary ---
:1970 External Reference #:[id number] Author Reason for Visit None recorded. Assessment and Plan Assessment Note I spent a total of 45 minutes face to f jazmine time with this patient and 30minutes of that time was spent in counseling and co ordination of care with that patient as described in the progress note and /or: risk factor reduction, recommended diagnostic studies, and instructions for treatment and follow-up. 1. Migraine ? magnesium, RBC ? CMP, serum or plasma ? CBC w/ diff 2. Photophobia 3. Homocystinemia ? vitamin B12 + folate, serum or blood 4. Congestion of nasal sinus 5. Hypoglycemia ? hypoglycemia: care instructions ? HbA1c (hemoglobin A1c), blood 6. Vitamin D deficiency ? vitamin D, 25-hydroxy, total, serum 7. Hyperlipidemia ? high cholesterol: care instructions ? lipid panel, serum ? homocysteine, serum or plasma Discussion Note: None recorded. Plan of Care Patient Instructions 1. pure genomincs- Bcomplex 1 cap aday 2. migramaxx 1 cap 2xday 3. ther-biotic power 1/8 tsp- 1.4 tsp da kaylah Vitamin d will be determined- d-hist 1 cap 2xday- slippery elm and licorice tincture- as n eeded for throat Reminders Provider Appointments Established Patient 45 05/13/2022 Carlos Layton [place] 2:45PM Lab Vitamin B12 + Folate, 04/01/2022 Lauren torres [place] [facility] ? Magnesium, RBC 04/01/2022 [facility] ? CMP, Serum or Plasma 04/01/2022 Samuel moralez [facility] ? CBC W/ Diff 04/01/2022 [facility] ? HbA1C (Hemoglobin a1C), 04/01/2022 Elysia mills [place] Blood [facility] ? Vitamin D, 25-Hydroxy, 04/01/2022 Cielo dean [place] Total, Serum [facility] ? Lipid Panel, Serum 04/01/2022 Roz garcia [facility] Lab ? Homocysteine, Serum or 04/01/2022 Cielo dean [place] Plasma [facility] Lab Referral None recorded. ? ? Procedures None recorded. ? ? Surgeries None recorded. ? ? Imaging None recorded. ? ? Medications Name Start Date ? ? amoxicillin 875 mg-potassium clavulanate 125 mg tablet ? compounded medication 02/28/2018 Methyl Guard take 1 cap 3xday for 2 weeks then 1 cap 2xday continu ally until next visit compounded medication ? nervine/anxiolytic 40-60 drops 3xday loratadine 10 mg tablet ? 1 tablet every day by oral route. Methyl-Guard Court ? Vitamin B6 (as Pyridoxal 5?-Phosphate) 20.4 mg/ Folate (1.2 mg as G-7-Pblslkkdgdchlxhantkrbd† from R-9-Ayokuumdvsephcdokwfej Acid, Glucosamine Salt) 2 mg/Vitamin B12 (as Methylcobalamin) 1.2 mg/Betaine Anhydrous (Trimethylglycine) 1.8 g 1 cap 1-3 times /day prednisone 20 mg tablet ? Sinus ? Sinusalia Boiron as needed Tagamet HB 200 mg tablet 10/25/2017 1 tablet every day by oral route. Medications Administered None recorded. Vitals Height Weight Blood Pressure 0 ft 148 lbs 16 oz 94/59.96 mm[Hg] Results Lab Results None recorded. Allergies None recorded. Problems Name Status Onset Date Source ? Transient Insomnia Active 01/12/2018 ? Migraine Active 01/12/2018 ? Photophobia Active 01/12/2018 ? Irritable Bowel Syndrome Active 01/12/2018 ? Burping Active 01/12/2018 ? Diarrhea Active 01/12/2018 ? Gluten Sensitivity Active 01/12/2018 ? Adverse Reaction to Food Active 01/12/2018 ? Allergy to Food Active 01/12/2018 ? Onychomycosis Active 01/25/2018 ? Vitamin D Deficiency Active 01/25/2018 ? Dietary Management Surveillance Active 01/25/2018 ? Hyperlipidemia Screening Active 01/25/2018 ? Eosinophil Count Raised Active 02/06/2018 ? Anxiety Active 02/10/2018 ? Flatulence, Eructation and Gas Pain Active 02/10/2018 ? Homocystinemia Active 02/28/2018 ? Congestion of Nasal Sinus Active 03/15/2018 ? Headache Active 03/15/2018 ? Hypoglycemia Active 04/01/2022 ? Hyperlipidemia Active 04/01/2022 ? Procedures Date Name Performed by ? 09/16/2017 Colonoscopy Information not avai lable 12/15/2008 Back Surgery Information not avai lable 05/17/1980 Hernia Repair Information not avai lable Vaccine List Vaccine Type influenza, seasonal, injectable 07/17/2017 measles 06/17/1975 mumps 06/17/1975 polio, unspecified formulation 06/17/1975 tetanus toxoid, unspecified formulation 07/17/2015 Social History Tobacco Smoking Status Never Smoker What type of diet are you following? GLUTENFREE Do you have difficulty walking or climbing N stairs? What is your parents' marital status? Are you currently employed? Y Are you able to care for yourself? Y Marital status Do you have any siblings? 1 How much tobacco do you chew? none What is your relationship status? Animal exposure? Y What is your level of alcohol consumption? Occasional Education 12 Which illicit or recreational drugs have None you used? Frequent air travel N Are you deaf or do you have serious N difficulty hearing? Are you passively exposed to smoke? Y Number of sexual partners 15 Legally blind in one or both eyes? N What is the name of your school? [employer] Do you have difficulty dressing or N bathing? Supplements Peppermint oil gels, Cbd oil, probiotics Do you have difficulty doing errands N alone? What was the date of your most recent 01/12/2018 tobacco screening? General stress level Medium How many years have you consumed alcohol? 30 What is your exercise level? Moderate Have there been any changes to your family N or social situation? Live alone or with others? with others Are you sexually active? Y Do you use protection during sex? No Do you have difficulty concentrating, Y remembering or making decisions? What types of sporting activities do you Treadill, hiking, h unting, fishing participate in? Hard of hearing or deaf in one or both N ears? Are there any occupational health risks Dust, smoke, asbesto s where you work? What is your level of caffeine None consumption? 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 Yes Past Encounters 04/01/2022 Migraine; Photophobia; Homocystinemia; C ongestion of Nasal Sinus; Hypoglycemia; Vitamin D Deficiency; Hyperlipidemia Opal [place], [place]: [address] , [facility] [place] [address], Ph. [phone] History of Present Illness Note: <div>blood sugars are low- 5 am lightheaded after walking and its down 55/56</div><div>lots of other mornings- </div><div>it was 78 when he was picked up in ambulence- </div><div>ER- February- </div><div>was sitting talking at work- </div><div>and numbenss and tingling in extremities, veins puffered up and heart rate was really high and hetold coworker to call ambulance- </div><div>lightheaded and thought he was going to passout- </div><div>he had a mgraine- that am- it was mild and he took migramaxx early and it went away- </div><div>he ate something before he went on walk- </div><div>usually has snacks bf walks- </div><div>he had migraine 4 days after on left side only- fee ls wierd and foggy on that side and has happened for many years prior- he was taking butterbur and b2 400mg which he read should be slowly brought up and he wasnt on that high of dose- </div><div>
</div><div>he gets leg cramps a lot bc of sciatic nerve pain</div><div>sun can trigger- </div><div>
</div><div>he has never had MRI of the brain- </div><div>
</div><div>he had vision changes yr euo7ihh ago and took trazadone- and he stopped it- </div><div>he used honey and sleepy timetea and slept better without traz</div><div>if he doesnt get enough sleep with sinus congestion</div><div>CT scan was done at ENT-and one side had no cavity left- </div><div>
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
</div&gt ;<div>
</div><div>ibs </div><div>occassioanlly diarrhea from stressful events like funerals- </div><div>he had vanilla recently 8oz yogurt by accident4/5 days from vanilla had belly aches- </div><div> January 2021 he got J and J shot- </div><div>
</div> Review of Systems None recorded. Physical Exam ? Notes: <div>posterior pharynx - red injection cobblestoning</div><div>ear exam normal </div><div>neuro WNL</div><d iv>heart sounds decreased- rrr, </div><div>lungs- clear t o auscultation</div><div>carotids normal - </div><div>ent normal except posterior pharynx</div><div>
</div><div>bottom of jaw bone can feel spot af ter tooth abcess- </div><div>
</div>
--- OUTSIDE RECORDS SUMMARY | 2022-04-23 02:34 | XMS_ITS ---
:1970 External Reference #:[id number] Author Care Team Providers Name Role Phone Opal Layton Primary Care Provider Unavailable Allergies None recorded. Medications Name Status Start Date Stop Date ? ? amoxicillin 875 mg-potassium clavulanate 125 mg Active ? Not available tablet compounded medication Completed 01/12/2018 08/17/2018 Lesly 50-14 1 cap 2x a day for a week and then 1 cap once a day compounded medication Active 02/28/2018 Not availa ble Methyl Guard take 1 cap 3xday for 2 weeks then 1 cap 2xday continually until next visit compounded medication Completed 03/28/2018 08/17/2018 Serretia w/ 8oz of water on an empty stomach. 2 caps 3x a day compounded medication Completed 01/12/2018 08/17/2018 GI Fortify 1/2 scoop am and pm for 3 days1 scoop i n am 1/2 scoop pm for 3 [id number] AM and PM for a month or until otherwise specified compounded medication Active ? Not availa ble nervine/anxiolytic 40-60 drops 3xday loratadine 10 mg tablet Active ? Not avai lable Methyl-Guard Court Active ? Not availabl e Vitamin B6 (as Pyridoxal 5?-Phosphate) 20.4 mg/ Folate (1.2 mg as W-9-Dyvnzqocdhqvgdmlxvhhdo† from I-1-Juiiqbnmxhkrqulzcbtbg Acid, Glucosamine Salt) 2 mg/Vitamin B12 (as Methylcobalamin) 1.2 mg/Betaine Anhydrous (Trimethylglycine) 1.8 g 1 cap 1-3 times /day olopatadine 0.2 % eye drops Completed ? 12/16 omeprazole 20 mg capsule,delayed release Completed ? 01/12/2018 prednisone 20 mg tablet Active ? Not avai lable Sinus Active ? Not available Sinusalia Boiron as needed Tagamet HB 200 mg tablet Active 10/25/2017 Not do ilable 1 tablet every day by oral route. Problems Name Status Onset Date Source ? [...] 05/17/1980 Hernia Repair Information not avai lable Results Lab Results Date Name Specimen Result Interpretation Description Value Range Status Address ? 07/29/2020 Lipid Panel, ? Cholesterol 156 <200 [facility] Serum mg/dL mg/dL [facility] ([facility] [address], [place] ? ? ? HDL Chol., 52 >40 [facility] mg/dL mg/dL [facility] ([facility] [address], [place] ? ? ? Triglycerides 101 <150 [facility] mg/dL mg/dL [facility] ([facility] [address], [place] ? ? ? HDL as % of 33 % >14 % [facility] Cholesterol [facility]alt h ([facility] [address], [place] ? ? ? chol/HDL Ratio 3.0 <7.4 [facility] [address], [place] ? ? ? LDL/HDL Ratio 1.62 <3.56 [facility] [address], [place] ? ? ? LDL Cholesterol 84 <100 [facility] mg/dL mg/dL [facility] ([facility] [address], [place] ? ? ? VLDL, 20 7-32 [facility] Calculated mg/dL mg/dL [facility] ([facility] [address], [place] ? ? ? non-HDL 104 <130 [facility] Cholesterol mg/dL mg/dL Healt h ([facility] [address], [place] 07/29/2020 Vitamin D, Low 25OH, Vitamin D 23.3 32.0-1 [facility] 25-Hydroxy, NG/mL 00.0 Healt h Total, Serum NG/mL ([facility] [address], [place] 07/29/2020 Homocysteine ? Homocysteine, 9.1 <15.0 [facility] , Serum or Serum umol/L umol/L Health Plasma ([facility] [address], [place] 07/29/2020 Cbc ? Wbc 4.16 3.66-1 [facility] x10(3)/ 0.60 Health uL x10(3) ([facility] /uL Labor[facility]): [address], [place] ? ? ? Rbc 5.03 3.94-5 [facility] x10(6)/ .76 Health uL x10(6) ([facility]uL [facility]): [address], [place] ? ? ? Hgb 15.6 12.0-1 [facility] g/dL 6.9 Health g/dL ([facility] [address], [place] ? ? ? Hct 45.3 % 34.6-4 [facility] 9.6 % [facility] ([facility] [address], [place] ? ? ? Mcv 90.1 fL 78.0-9 [facility] 8.0 fL [facility] ([facility] [address], [place] ? ? ? Mch 31.0 pg 25.8-3 [facility] 3.1 pg Health ([facility] [address], [place] ? ? ? Mchc 34.4 31.7-3 [facility] g/dL 5.3 Health g/dL ([facility] [address], [place] ? ? Low Rdw 11.7 % 12.2-1 [facility] 5.3 % Health ([facility] [address], [place] ? ? ? Polys 62.6 % 34.9-7 [facility] 5.3 % [facility] ([facility] [address], [place] ? ? ? Lymphs 20.9 % 14.0-5 [facility] 1.8 % [facility] ([facility] [address], [place] ? ? ? Monos 10.3 % 3.5-13 [facility] .2 % Health ([facility]): [address] ? ? ? Eos 5.0 % 0.0-6. [facility] 2 % [facility] ([facility] [address] ? ? ? Basos 1.0 % 0.0-1. [facility] 0 % [facility] ([facility] [address] ? ? ? Immature 0.2 % 0.0-1. [facility] Granulocytes 0 % Heal th ([facility]): [address], [place] ? ? ? Platelet Count 227 140-42 [facility] x10(3)/ 5 Health uL x10(3) ([facility] ence /uL Laboratori es): [address], [place] ? ? ? Mpv 10.8 fL 8.6-12 [facility] .1 fL Health ([facility] [address], [place] 02/15/2018 Angelika Serum ? Angelika 0.69 ev <=0.88 [facility] Albicans IgA Antibody IgA ev Diagnostics: + IgG + IgM [address] Ab, Serum Luis B, [place] ? ? Serum High Angelika 0.95 ev <=0.88 [facility] Antibody IgG ev Diag nostics: [address] [place], [place] ? ? Serum ? Angelika 0.11 ev <=0.88 [facility] Antibody IgM ev Diag nostics: [address] [place], [place] 02/15/2018 Lipoprotein Serum High Lipoprotein (a) 57 <=29 [facility] (a), Serum mg/dL mg/dL Diagno stics: [address] [place], [place] 02/15/2018 Homocysteine serum High Homocysteine, 21.2 5.0-15 [facility] , Serum or Total umol/L .0 Diagno stics: Plasma umol/L [address] [place], [place] 02/15/2018 Lipid Panel, serum ? Chol 155 <200 [facility] Serum mg/dL mg/dL Diagnostic s: [address] [place], [place] ? ? serum ? Trig 80 <149 [facility] mg/dL mg/dL Diagnostic s: [address] [place], [place] ? ? serum ? Ldl 89.5 <99.0 [facility] mg/dL mg/dL Diagnostic s: [address] [place], [place] ? ? serum ? Hdl 58 >39 [facility] mg/dL mg/dL Diagnostic s: [address] [place], [place] ? ? serum ? LDL/HDL 1.5 ? [facility] ratio Diagnostic s: [address], [place] ? ? serum ? Trig/hdl 1.4 <2.0 [facility] ratio ratio Diagnostic s: [address], [place] ? ? serum ? Chol/hdl 2.7 ? [facility] ratio Diagnostic s: [address], [place] ? ? serum ? Vldl 16.0 <30.0 [facility] mg/dL mg/dL Diagnostic s: [address], [place] 02/15/2018 Vitamin D, serum ? Vitamin D 25-Oh 42.0 30.0-1 [facility] 25-Hydroxy, NG/mL 00.0 Diagn ostics: Total, Serum NG/mL [address] 01[facility] Allergen, Serum ? Allergen, Food, <0.10 <=0.34 [facility], Casein Casein IgE kU/L kU/L Diagnostics: [address], [place] 01/12/2018 Casein Ige, Serum ? Allergen, Food, 2.16 0.00- 3 [facility] Serum Casein (Cow's mcg/mL 8.69 Julianna gnostics: Milk) IgG mcg/mL [address] Smith B, [facility] 01/12/2018 Goat Milk Serum ? Allergen, Food, <0.10 <=0.34 [facility] IgE Ab, Goat Milk IgE kU/L kU/L Di agnostics: Serum [address] [facility] 01/12[facility]2018 Allergen, Serum ? Allergen, Food, 6.07 0.00-8 [facility] Food, Whey, Whey IgG mcg/mL 8.60 [facility]: IgG mcg/mL [address], [facility] 01/12/2018 Rast, Serum ? Allergen, see ? Final [facility] (Reflex) Interp, note Diagnos tics: Immunocap Score 2 [address] IgE Luis B, [place] [facility] 01/12/2018 Vitamin a Serum ? Vitamin a 0.66 0.30-1 [facility] (Retinol), (Retinol) mg/L .20 [facility] gn[facility]: Serum mg/L [address] Luis B, [place] [facility] ? ? Serum ? Vitamin a 0.05 0.00-0 [facility] (Retinyl mg/L .10 Diagnost ics: Palmitate) mg/L [address] Luis B, [place] [facility] ? ? Serum ? Vitamin a, normal ? [facility] Ser/serena - Diagnos tics: Interpretation [address] Luis B, [place] [facility] 01/12/2018 Gliadin Serum ? Deamidated 3 units 0-19 [facility] Peptide Iga Gliadin Peptide units Diagnostics: Ab, Serum (Dgp) Ab, IgA [address] Luis B, [facility] 01/12/2018 Gliadin Serum ? Deamidated 2 units 0-19 [facility] Peptide Igg Gliadin Peptide units Diagnostics: Ab, Serum (Dgp) Ab, IgG [address] Luis B, [facility] 01/12/2018 Endomysial Serum ? Endomysial <1:10 <1:10 [facility] Iga Ab, Antibody, IgA Di agnostics: Serum Titer [address] Luis B, [place] [facility] 01/12/2018 Iga, Serum ? Immunoglobulin 293 68-408 [facility] Quantitative a mg/dL mg/dL Diag nostics: , Serum [address] Luis B, [facility] 01/12/2018 Tissue Serum ? Tissue 0 U/mL 0-3 [facility] Transglutami Transglutaminase U/mL Diagnostics: nase Iga Ab, (Ttg) Ab, IgA [address] Serum Luis B, [place] [facility] 01/12/2018 Vitamin B12, serum ? Vitamin B12 579 211-94 F inal [facility] Serum pg/mL 6 Diagnostic s: pg/mL [address] Luis B, [place] [facility] 01/12/2018 CMP, Serum serum ? Glucose 85 <100 [facility] or Plasma mg/dL mg/dL Diagnos tics: [address] Luis B, [place] [facility] ? ? serum ? Bun 19 7-25 [facility] mg/dL mg/dL Diagnostic s: [address] [place], [place] ? ? serum ? Creatinine 1.02 0.60-1 [facility] mg/dL .20 Diagnostic s: mg/dL [address] Luis [place], [place] ? ? serum ? BUN / 18.6 6.0-21 [facility] Creatinine Ratio ratio .0 Diagnostics: ratio [address] Luis [place], [place] ? ? serum ? eGFR 101 >60 Final [facility] cy Vietnamese mL/min/ mL/min Diagnos tics: 1.73m2 /1.73m [address] [place], [place] ? ? serum ? eGFR 87 >60 [facility] Non- mL/min/ mL/min Diag nostics: Vietnamese 1.73m2 /1.73m [address] Luis [place], [place] ? ? serum ? Sodium 141 135-14 [facility] mmol/L 5 Diagnostic s: mmol/L [address] [place], [place] ? ? serum ? Potassium 3.9 3.5-5. [facility] mmol/L 1 Diagnostic s: mmol/L [address] [place], [place] ? ? serum ? Chloride 102 98-107 [facility] mmol/L mmol/L Diagnostic s: [address] Luis [place], [place] ? ? serum ? Co2 28 21-31 [facility] mmol/L mmol/L Diagnostic s: [address] [place], [place] ? ? serum ? Anion Gap 11 5-15 [facility] mEq/L mEq/L Diagnostic s: [address] [place], [place] ? ? serum ? Calcium 9.5 8.6-10 [facility] mg/dL .3 Diagnostic s: mg/dL [address] Luis [place], [place] ? ? serum ? Total Protein 7.0 6.4-8. [facility] g/dL 9 g/dL Diagnostic s: [address] [place], [place] ? ? serum ? Albumin 4.6 3.5-5. [facility] g/dL 7 g/dL Diagnostic s: [address], [place] ? ? serum ? Globulin 2.4 1.9-3. [facility] g/dL 5 g/dL Diagnostic s: [address], [place] ? ? serum ? Albumin / 1.9 0.8-2. [facility] Globulin Ratio ratio 0 Di agnostics: ratio [address], [place] ? ? serum ? Tbili 0.5 0.1-1. [facility] mg/dL 5 Diagnostic s: mg/dL [address], [place] ? ? serum ? Alk. 73 IU/L 45-115 [facility] Phosphatase IU/L Diagn ostics: [address], [place] ? ? serum Low Ast 12 IU/L 13-39 [facility] IU/L Diagnostic s: [address], [place] ? ? serum ? Alt 18 IU/L 7-52 [facility] IU/L Diagnostic s: [address], [place] 01/12/2018 Folate, serum ? Folate >20.0 4.6-34 Final [facility] y Serum NG/mL .8 Diagnostic s: NG/mL [address], [place] 01/12/2018 Magnesium, serum ? Magnesium 2.4 1.9-2. [facility] Serum or mg/dL 7 Diagnost ics: Plasma mg/dL [address], [place] 01/12/2018 Vitamin D, serum Low Vitamin D 25-Oh 18.8 30.0-1 [facility] 25-Hydroxy, NG/mL 00.0 Diagn ostics: Total, Serum NG/mL [address], [place] 01/12/2018 TSH, Serum serum ? Tsh 1.18 0.40-4 Final [facility] or Plasma uIU/mL .50 Diagnos tics: uIU/mL [address], [place] 01/12/2018 T4, Free, serum ? Free T4 1.13 0.93-1 Final [facility] Serum NG/dL .70 Diagnostic s: NG/dL [address], [place] 01/12/2018 Magnesium, RBCs ? Magnesium, RBCs 2.2 1.5-3. [facility] RBC mmol/L 1 Diagnostic s: mmol/L [address], [place] 01/12/2018 Vitamin B1 Whole High Vitamin B1, 186 70-180 Fin al [facility] (Thiamine), Blood Whole Blood nmol/L nmol/L Diagnostics: Blood [address], [place] 01/12/2018 Vitamin K, Serum High Vitamin K1 5.85 0.22-4 [facility] Serum or nmol/L .88 Diagnost ics: Plasma nmol/L [address], [place] 01/12/2018 Zinc, Serum Serum ? Zinc, 75 60-120 Final [facility] or Plasma Serum/plasma ug/dL ug/dL D iagnostics: [address], [place] 01/12/2018 CBC W/ Auto wholeb ? White Blood 5.6 4.0-11 Fi nal [facility] Diff lood Cell Count 10^3/uL .0 Diagn ostics: 10^3/u [address] [place], [place] ? ? wholeb ? Red Blood Cell 5.31 4.00-6 Final [facility] lood Count 10^6/uL .00 Diagnosti cs: 10^6/u [address] [place], [place] ? ? wholeb ? Hemoglobin 15.9 13.5-1 [facility] lood g/dL 8.0 Diagnostic s: g/dL [address] [place], [place] ? ? wholeb ? Hematocrit 46.0 % 42.0-5 [facility] lood 2.0 % Diagnostic s: [address] [place], [place] ? ? wholeb ? Mean Cell 86.7 fL 78.0-1 [facility] lood Volume 00.0 Diagnostic s: fL [address] [place], [place] ? ? wholeb ? Mean Cell 30.1 pg 25.0-3 [facility] lood Hemoglobin 5.0 pg Diagno stics: [address] [place], [place] ? ? wholeb ? Mean Cell 34.7 30.0-3 [facility] lood Hemoglobin g/dL 7.0 Diagno stics: Concentration g/dL [address] Luis B, [place] ? ? wholeb ? Red Cell 12.5 % 11.5-1 [facility] lood Distribution 4.5 % Diag nostics: Width [address] [place], [place] ? ? wholeb ? Platelet Count 266 150-45 Final [facility] lood 10^3/uL 0 Diagnosti cs: 10^3/u [address] [place], [place] ? ? wholeb ? Mean Platelet 8.2 fL 6.8-10 Final [facility] lood Volume .4 fL Diagnostic s: [address] [place], [place] ? ? wholeb ? Neutrophil 62.4 % 40.0-7 [facility] lood Percent 0.0 % Diagnosti cs: [address] [place], [place] ? ? wholeb ? Absolute 3.5 1.5-6. [facility] lood Neutrophil 10^3/uL 6 Diagn ostics: 10^3/u [address] Luis [place], [place] ? ? wholeb ? Lymphocyte 19.0 % 18.0-4 [facility] lood Percent 8.0 % Diagnosti cs: [address] [place], [place] ? ? wholeb ? Absolute 1.1 0.8-4. [facility] lood Lymphocyte 10^3/uL 8 Diagn ostics: 10^3/u [address] Luis [place], [place] ? ? wholeb ? Monocyte 8.4 % 2.0-11 [facility] lood Percent .0 % Diagnosti cs: [address] Luis [place], [place] ? ? wholeb ? Absolute 0.50 0.00-0 [facility] lood Monocyte 10^3/uL .90 Diagnos tics: 10^3/u [address] Luis [place], [place] ? ? wholeb High Eosinophil 8.9 % 0.0-5. [facility] lood Percent 0 % Diagnosti cs: [address] Luis [place], [place] ? ? wholeb ? Absolute 0.5 0.0-0. [facility] lood Eosinophil 10^3/uL 5 Diagn ostics: 10^3/u [address] Luis [place], [place] ? ? wholeb ? Basophil 1.3 % 0.0-2. [facility] lood Percent 0 % Diagnosti cs: [address] Luis [place], [place] ? ? wholeb ? Basophil 0.10 0.00-0 [facility] lood Absolute 10^3/uL .30 Diagnos tics: 10^3/u [address] Luis [place], [place] Past Encounters 04/01/2022 Migraine; Photophobia; Homocystinemia; C ongestion of Nasal Sinus; Hypoglycemia; Vitamin D Deficiency; Hyperlipidemia Opal Layton, ND: [address] [place] [phone], Ph. [phone] 08/27/2021 Covid-19; Fever; Seasonal Allergic Rhini tis Opal Layton, ND: [address] [place] [phone], Ph. Social History Tobacco Smoking Status Never Smoker Vaccine List Vaccine Type influenza, seasonal, injectable 07/17/2017 measles 06/17/1975 mumps 06/17/1975 polio, unspecified formulation 06/17/1975 tetanus toxoid, unspecified formulation 07/17/2015 Plan of Care Patient Instructions 1. pure genomincs- Bcomplex 1 cap aday 2. migramaxx 1 cap 2xday 3. ther-biotic power 10/24 tsp- 1.4 tsp da kaylah Vitamin d will be determined- d-hist 1 cap 2xday- slippery elm and licorice tincture- as n eeded for throat 1. vit C 2000mg 3xday 2. Vit D 10, 000 iu/day 3. Zinc a.g. 2 caps 2xday 4. Viracon- 2 caps 3xday 5. pure defense NAC-1 cap 2-3 times a da y for thinning mucous and extra immune support all for 10-14 days then decrease dosages to vit c 2000mg/day zinc 20-30mg/day vit D - 4 000iu/day viracon 1 cap 2xday pure defence 1 cap/day WET SOCK TREATMENT (aka Warming Socks) After nightly bath or shower prepare in advance socks, wrung out after run under cold water. Check that the feet feel warm after bathing. Then place socks on and cover with Dry Wool Socks. Go to bed. Yo u will awake with them dry. This treatme nt will assist lymphatic drainage while sending the blood to the feet to warm the socks as well as helping you breathe while sleeping. then return to allergy/sinus support as you were and diet back to before Reminders Provider Appointments None recorded. ? ? Lab None recorded. ? ? Referral None recorded. ? ? Procedures None recorded. ? ? Surgeries None recorded. ? ? Imaging None recorded. ? ? Vitals 04/01/2022 11:15AM ESTABLISHED PATIENT 45 Height Weight Blood Pressure 0 ft 148 lbs 16 oz 94/59.96 mm[Hg] 07/24/2020 09:30AM ESTABLISHED PATIENT 45 Weight Blood Pressure 147 lbs 106/60 mm[Hg] 01/01/2020 03:15PM ESTABLISHED PATIENT 45 Weight Blood Pressure 142 lbs 3.2 oz 110/59.97 mm[Hg] 08/17/2018 12:15PM ESTABLISHED PATIENT 45 Height Weight BMI Blood Pressure 5 ft 8.5 in 138 lbs 6.4 oz 20.7 kg/m2 98/54 mm[Hg] 04/13/2018 01:00PM ESTABLISHED PATIENT 30 Height Weight BMI 5 ft 8.5 in 139 lbs 16 oz 21 kg/m2 03/28/2018 12:45PM ESTABLISHED PATIENT 30 Height 5 ft 8.5 in 03/15/2018 10:15AM ESTABLISHED PATIENT 30 Height Weight BMI 5 ft 8.5 in 140 lbs 8 oz 21.1 kg/m2 02/28/2018 02:00PM ESTABLISHED PATIENT 45 Height Weight BMI 5 ft 8.5 in 142 lbs 21.3 kg/m2 01/12/2018 11:00AM NEW PATIENT 60 Height Weight BMI Blood Pressure 5 ft 8.5 in 147 lbs 16 oz 22.2 kg/m2 98/68 mm[Hg]
[2022-04-23 15:22] LABS: Abs Immature Grans 0.01 10^3/uL (0.0-0.06); Absolute Basophil Count 0.06 10^3/uL (0.0-0.2); Absolute Eosinophil Count 0.17 10^3/uL (0.0-0.7); Absolute Monocyte Count 0.47 10^3/uL (0.1-0.8); Absolute Neutrophil Count 3.07 10^3/uL (1.2-6.7); Basophils % 1.2; Eosinophils % 3.5; HCT 42.5 % (40.0-50.0); HGB 15.3 g/dL (13.5-17.5); Immature Grans % 0.2; Lymphocytes % 22.5; MCH 31.5 pg (27.0-33.0); MCV 87 fL (80-95); MPV 10.2 fL (8.0-11.0); Monocytes % 9.6; Platelet Count 190 10^3/uL (130-400); RBC 4.86 10^6/uL (4.36-5.78); RDW 11.6 % (11.8-14.1); WBC 4.88 10^3/uL (4.4-10.8)
[2022-04-23 16:07] LABS: ALT 53 U/L (16-63); AST 22 U/L (15-37); Albumin 3.9 g/dL (3.4-5.0); Alkaline Phosphatase 103 U/L (46-116); Anion Gap 7.5 mmol/L (3-11); BUN 18 mg/dL (7-18); Bilirubin, Total 0.4 mg/dL (0.2-1.0); CO2 30.5 mmol/L (21.0-32.0); CREATININE 1.1 mg/dL (0.70-1.30); Calcium 8.6 mg/dL (8.5-10.1); Calculated LDL 96 mg/dL (<100); Chloride 103 mmol/L (98-107); Cholesterol 174 mg/dL (<200); Glucose 116 mg/dL (74-106); HDL Cholesterol 53 mg/dL (40-60); Potassium 3.8 mmol/L (3.5-5.1); Sodium 141 mmol/L (136-145); Total Protein 6.7 g/dL (6.4-8.2); Triglyceride 127 mg/dL (<150); Vitamin B12 803 pg/mL (193-986)
[2022-04-23 17:39] LABS: Hemoglobin A1C 5.1 % (<5.7)
[2022-04-23 18:11] LABS: Folate > 20.0 ng/mL (8.6-20.0)
[2022-04-26 05:56] LABS: Vitamin D 25 Total 72.3 ng/mL (30-100)
[2022-04-26 08:15] LABS: Homocysteine 9.2 umol/L (5.0-13.9)
== END 2022-04-23 02:28 | disposition home or self-care (01) ==
LOC: LBO 02:27
PROVIDERS: PCP Internal Medicine; Visit Provider Naturopath
DX: G43.909 Migraine, unspecified, not intractable, without status migrainosus (principal); E72.11 Homocystinuria; E16.2 Hypoglycemia, unspecified; E55.9 Vitamin D deficiency, unspecified; E78.5 Hyperlipidemia, unspecified
CPT/HCPCS: 36415; 80053; 80061; 82306; 83090; 82607; 82746; 83036; 83735; 85025

== ENCOUNTER 2023-04-07 16:46 | Outpatient (REF) | payer BC, SELFPAY ==
--- OUTSIDE RECORDS SUMMARY | 2023-04-07 16:47 | XMS_ITS | CCD ---
Author Name Unknown Address [address] [place] [id number] Organization Unknown Address [address] [place], [place] [id number] Care Team Providers Care Manager Corporate Name Role Phone ALEN TOBAR Attending Physician [phone] ALEN TOBAR Rounding (Secondary) Physician [phone] Vital Signs Unknown or Not Available. Allergies Unknown or Not Available. Procedures Unknown or Not Available. History of Immunizations Unknown or Not Available. Problems Unknown or Not Available. Results Unknown or Not Available. Active Medications Unknown or Not Available. Medications Administered During Visit Unknown or Not Available. Encounters Encounter Diagnosis Diagnosis Code Start Date Superficial injury of thumb [id number] 12/15 Social History Smoking Status Code Start Date End Date Never smoker [id number] Patient Decision Aids Unknown or Not Available. Discharge Instructions You were admitted to [facility] on 01/01/2022 10:53 with a principal diagnosis of Other superficial injuries of left thumb, initial encounter You were discharged from [facility] on 01/01/2022 00:00 Should you have any questions prior to discharge, please contact a member of your healthcare team. If you have left the hospital and have any questions, please contact your primary care physician. Chief Complaint and Reason For Visit Unknown or Not Available. Function Status Unknown or Not Available. Plan of Care Unknown or Not Available. Referral/Transition of Care Unknown or Not Available.
[2023-04-08 20:25] LABS: PSA, Screening 0.3 ng/mL (<=3.5)
[2023-04-11 13:29] LABS: IgA 269 mg/dL (85-499); Interpretation (See Note); Tissue Transglutaminase IgA <1.2 U/mL (<4.0)
== END 2023-04-07 16:47 | disposition home or self-care (01) ==
LOC: NCHCN 16:46
PROVIDERS: PCP Nurse Practitioner Family; Visit Provider Nurse Practitioner Family
DX: Z12.5 Encounter for screening for malignant neoplasm of prostate (principal); J30.9 Allergic rhinitis, unspecified; R09.81 Nasal congestion
CPT/HCPCS: 82784; 83516; 84153

== ENCOUNTER 2023-08-03 11:12 | Outpatient (REF) | payer BC, SELFPAY ==
[2023-08-03 14:04] LABS: Source Nasal/Nares
[2023-08-03 14:51] LABS: COVID-19 PCR Negative (Negative)
== END 2023-08-03 11:13 | disposition home or self-care (01) ==
LOC: LBN 11:12
PROVIDERS: PCP Nurse Practitioner Family; Visit Provider Physician Assistant Medical
DX: J39.2 Other diseases of pharynx (principal); Z20.822 Contact with and (suspected) exposure to COVID-19
CPT/HCPCS: 87635; 87070

== ENCOUNTER 2024-04-11 11:39 | Outpatient (REF) | payer BC, SELFPAY ==
[2024-04-11 14:45] LABS: HCT 45.5 % (40.0-50.0); HGB 15.9 g/dL (13.5-17.5); MCH 30.6 pg (27.0-33.0); MCHC 34.9 % (32.0-36.0); MCV 88 fL (80-95); MPV 10.4 fL (8.0-11.0); Platelet Count 247 10^3/uL (130-400); RBC 5.19 10^6/uL (4.36-5.78); RDW 11.7 % (11.8-14.1); RDW-SD 37.5 fL; WBC 4.99 10^3/uL (4.4-10.8)
[2024-04-11 15:13] LABS: Calculated LDL 97 mg/dL (<100); Cholesterol 187 mg/dL (<200); HDL Cholesterol 53 mg/dL (40-60); Triglyceride 185 mg/dL (<150)
[2024-04-11 16:21] LABS: Albumin 3.8 g/dL (3.4-5.0); Alkaline Phosphatase 88 U/L (46-116); Anion Gap 9.9 mmol/L (3-11); BUN 15 mg/dL (7-18); Bilirubin, Total 0.73 mg/dL (0.2-1.0); CO2 29.1 mmol/L (21.0-32.0); CREATININE 1.1 mg/dL (0.70-1.30); Calcium 9.1 mg/dL (8.5-10.1); Chloride 105 mmol/L (98-107); Estimated GFR 80.27 (mL/min/1.73m2); Glucose 83 mg/dL (74-106); Potassium 3.9 mmol/L (3.5-5.1); Sodium 144 mmol/L (136-145); Total Protein 6.9 g/dL (6.4-8.2)
[2024-04-11 16:22] LABS: ALT 40 U/L (16-63); AST 26 U/L (15-37)
[2024-04-11 22:27] LABS: PSA, Screening 0.3 ng/mL (<=3.5)
== END 2024-04-11 11:40 | disposition home or self-care (01) ==
LOC: NCHCN 11:39
PROVIDERS: PCP Nurse Practitioner Family; Visit Provider Nurse Practitioner Family
DX: Z00.00 Encounter for general adult medical examination without abnormal findings (principal); Z13.220 Encounter for screening for lipoid disorders; Z13.228 Encounter for screening for other metabolic disorders; Z12.5 Encounter for screening for malignant neoplasm of prostate
CPT/HCPCS: 80053; 80061; 84153; 85027

== ENCOUNTER 2024-07-24 03:10 | Outpatient (CLI) | payer BC, SELFPAY ==
[2024-07-24 08:34] LABS: Hemoglobin A1C 4.8 % (<5.7)
[2024-07-24 08:50] LABS: Folate > 20.0 ng/mL (8.6-20.0); Vitamin B12 911 pg/mL (193-986); Vitamin D 25 Total 78.7 ng/mL (30-100)
[2024-07-25 08:40] LABS: Homocysteine 9.2 umol/L (5.0-13.9)
[2024-07-25 10:04] LABS: Insulin 4.4 uIU/mL (<29.0)
== END 2024-07-24 03:11 | disposition home or self-care (01) ==
LOC: LBO 03:10
PROVIDERS: PCP Nurse Practitioner Family; Visit Provider Naturopath
DX: E16.2 Hypoglycemia, unspecified (principal); E72.11 Homocystinuria; E55.9 Vitamin D deficiency, unspecified
CPT/HCPCS: 36415; 82306; 83090; 82607; 82746; 83036; 83525

== ENCOUNTER 2024-10-04 16:47 | Outpatient (CLI) | payer BC, SELFPAY ==
[2024-10-04 15:50] LABS: Abs Immature Grans 0.01 10^3/uL (0.0-0.06); Absolute Basophil Count 0.05 10^3/uL (0.0-0.2); Absolute Eosinophil Count 0.08 10^3/uL (0.0-0.7); Absolute Lymphocyte Count 1.26 10^3/uL (1.2-3.4); Absolute Monocyte Count 0.49 10^3/uL (0.1-0.8); Absolute Neutrophil Count 3.45 10^3/uL (1.2-6.7); Basophils % 0.9 %; Eosinophils % 1.5 %; HCT 45.9 % (40.0-50.0); HGB 15.8 g/dL (13.5-17.5); Immature Grans % 0.2 %; Lymphocytes % 23.6 %; MCH 30.6 pg (27.0-33.0); MCHC 34.4 % (32.0-36.0); MCV 89 fL (80-95); MPV 9.5 fL (8.0-11.0); Monocytes % 9.2 %; Neutrophils % 64.6 %; Platelet Count 198 10^3/uL (130-400); RBC 5.16 10^6/uL (4.36-5.78); RDW 11.6 % (11.8-14.1); RDW-SD 37.6 fL; WBC 5.34 10^3/uL (4.4-10.8)
[2024-10-04 17:00] LABS: Vitamin D 25 Total 73.2 ng/mL (30-100)
== END 2024-10-04 16:48 | disposition home or self-care (01) ==
LOC: LBO 16:48
PROVIDERS: PCP Nurse Practitioner Family; Visit Provider Naturopath
DX: E55.9 Vitamin D deficiency, unspecified (principal); E53.8 Deficiency of other specified B group vitamins
CPT/HCPCS: 36415; 82306; 85025

== ENCOUNTER 2025-04-17 10:05 | Outpatient (REF) | payer BC, SELFPAY ==
[2025-04-17 14:31] LABS: HCT 44.8 % (40.0-50.0); HGB 15.3 g/dL (13.5-17.5); MCH 30.4 pg (27.0-33.0); MCHC 34.2 % (32.0-36.0); MCV 89 fL (80-95); MPV 10.6 fL (8.0-11.0); Platelet Count 216 10^3/uL (130-400); RBC 5.03 10^6/uL (4.36-5.78); RDW 11.9 % (11.8-14.1); RDW-SD 38.4 fL; WBC 4.88 10^3/uL (4.4-10.8)
[2025-04-17 15:47] LABS: ALT 50 U/L (16-63); AST 26 U/L (15-37); Albumin 4.0 g/dL (3.4-5.0); Alkaline Phosphatase 95 U/L (46-116); Anion Gap 7.0 mmol/L (3-11); BUN 15 mg/dL (7-18); Bilirubin, Total 0.4 mg/dL (0.2-1.0); CO2 29.0 mmol/L (21.0-32.0); Calcium 9.0 mg/dL (8.5-10.1); Calculated LDL 87 mg/dL (<100); Chloride 105 mmol/L (98-107); Cholesterol 161 mg/dL (<200); Estimated GFR 101.49 (mL/min/1.73m2); Glucose 92 mg/dL (74-106); HDL Cholesterol 59 mg/dL (>or=40); Potassium 4.0 mmol/L (3.5-5.1); Sodium 141 mmol/L (136-145); Total Protein 6.7 g/dL (6.4-8.2); Triglyceride 75 mg/dL (<150)
[2025-04-17 22:55] LABS: HBs Antibody, Quant <3.1 mIU/mL (See Note); Hepatitis B Surface Ab Negative (See Note)
[2025-04-17 22:57] LABS: PSA, Screening 0.3 ng/mL (<=3.5)
[2025-04-17 23:34] LABS: Hepatitis C Ab w Rflx HCV PCR Negative (Negative)
[2025-04-17 23:36] LABS: HIV-1/2 Ag & Ab Screen Negative (Negative)
[2025-04-17 23:38] LABS: Hep A Total Ab w Rflx IgM Negative (Negative)
== END 2025-04-17 10:06 | disposition home or self-care (01) ==
LOC: NCHCN 10:05
PROVIDERS: PCP Nurse Practitioner Family; Visit Provider Nurse Practitioner Family
DX: Z00.00 Encounter for general adult medical examination without abnormal findings (principal); Z12.5 Encounter for screening for malignant neoplasm of prostate; Z23 Encounter for immunization
CPT/HCPCS: 80053; 80061; 84153; 85027; 86706; 86709; 86803; 87389

== ENCOUNTER 2025-05-02 19:38 | Emergency (ER) | payer BC, SELFPAY ==
[2025-05-02 19:56] VITALS: BP 130/78; PULSE 70; RESP 18; TEMP 36.6; O2SAT 99
--- NOTE | 2025-05-02 20:02 | W.ED.GENAD ---
Discharge Plan Disposition Patient Disposition: Home Condition: Stable Discharge Details Clinical Impression: Cervical paraspinous muscle spasm Primary Care Provider: Ellen Man ED Provider: Dedrick Wild Home Meds and New Rx's Prescriptions: New cyclobenzaprine 10 mg tablet 10 mg PO TID PRNQty: 30 0RF No Action prednisone 20 mg tablet See Rx Instructions PO DAILY Qty: 11 0RF Rx Instructions: 2 tabs 3 days; 1 tab 3 days; 0.5 tabs 4 days PO daily; zinc glycinate 20 mg capsule PO DAILY purple butterburr 50 mg tablet PO DAILY ascorbic acid (vitamin C) 1,000 mg capsule 1,000 mg PO DAILY cholecalciferol (vitamin D3) 25 mcg (1,000 unit) capsule 25 mcg PO DAILY ergocalciferol (vitamin D2) 200 mcg/mL (8,000 unit/mL) drops 100 mcg PO DAILY natural d-hist orthomolecular capsule PO DAILY riboflavin (vitamin B2) 400 mg tablet 400 mg PO DAILY magnesium citrate 100 mg tablet 400 mg PO DAILY Discharge Instructions Instructions: Cyclobenzaprine, Muscle Spasm ED Additional Instructions: You were seen in the emergency department for your left cervical muscle spasm, you are neurovascularly intact in the upper extremities. Please take 1000 mg of Tylenol every 6 hours, use Voltaren gel 3 times per day, use the prescribed Flexeril 3 times per day for muscle relaxation, try to perform gentle massage and pressure-point therapy on the muscle to get it to relax. Please return for any profound weakness of the arms or sudden onset of vertigo or any other emergent neurologic complaint. Referrals: Ellen Man [Primary Care Provider, Medicine] Discharge Data Discharge Date/Time-TO BE ENTERED AT DEPARTURE: 05/02/25 21:03 HPI General Date/Time Provider Initiated Documentation: 05/02/25 20:01. HPI Narrative: 54 year-old male presents to ED today by POV/ambulating with a chief complaint of L lateral neck pain and spasm with onset the past day or two. Quality described as very tight muscles in L trapezius area, no radiation to trauma, headache, visual changes, tinnitus, midline neck pain, endorses intermittent mild tingling down L arm. Severity is described as severe. Palliating factors include nothing specific attempted beyond OTCs. Provoking factors include nothing specific. Patient not anticoagulated. Related Data Home Medications ?Medication ?Instructions ?Recorded ?Confirmed ascorbic acid (vitamin C) 1,000 mg 1,000 mg PO DAILY 07/05/22 05/02/25 capsule cholecalciferol (vitamin D3) 25 25 mcg PO DAILY 07/05/22 05/02/25 mcg (1,000 unit) capsule ergocalciferol (vitamin D2) 200 100 mcg PO DAILY 07/05/22 05/02/25 mcg/mL (8,000 unit/mL) oral drops magnesium citrate 100 mg tablet 400 mg PO DAILY 07/05/22 05/02/25 natural d-hist orthomolecular PO DAILY 07/05/22 11/17/22 purple butterburr PO DAILY 07/05/22 11/17/22 riboflavin (vitamin B2) 400 mg 400 mg PO DAILY 07/05/22 05/02/25 tablet zinc glycinate PO DAILY 07/05/22 11/17/22 cyclobenzaprine 10 mg tablet 10 mg PO TID PRN #30 tabs 05/02/25 prednisone 20 mg tablet See Rx Instructions PO DAILY #11 05/03/25 05/03/25 tabs Previous Rx's ?Medication ?Instructions ?Recorded cyclobenzaprine 10 mg tablet 10 mg PO TID PRN #30 tabs 05/02/25 prednisone 20 mg tablet See Rx Instructions PO DAILY #11 05/03/25 tabs Allergies Allergy/AdvReac Type Severity Reaction Status Date / Time No Known Allergies Allergy Unverified 05/03/25 18:14 General Stated Complaint: Nk/Back Pain DEV: 4 Review of Systems All systems reviewed & are unremarkable except as noted in HPI and below Exam Narrative Exam Narrative: GENERAL APPEARANCE: Well-nourished, non-toxic, awake and alert, atraumatic, no acute distress. SKIN: Warm, pink, dry, intact, without rashes/lesions/ulcerations. HEAD: Normocephalic, atraumatic, normal hair distribution for gender/age. EYES: Normal conjunctiva, no exudates on lids/lashes. ENT: Nares patent, no circumoral cyanosis, no facial swelling NECK: Supple, trachea midline, limited cervical ROM, no midline vertebral tenderness/crepitus/stepoffs, palpable tension in L trapezius LUNGS/CHEST: Non-labored respirations, normal A/P diameter, symmetrical expansion, no chest wall deformity HEART (CV/PV): No peripheral edema, no JVD, L radial pulse 2+ ABDOMEN: Soft, non-distended, no guarding. MSK: Normal ROM, no swelling/deformity to bilateral UEs or LEs, moving all extremities without weakness, no cyanosis, spine midline without tenderness, normal curvature. NEURO: Mental Status AAOx4 - alert to person, place, time, events No facial droop, no forehead involvement. Motor: No focal weakness - strength 5/5 in bilateral UEs and LEs, proximal and distal, symmetric. Sensory: sensation intact to light touch globally. Gait normal: patient ambulated without ataxia into ED room. PSYCH: euthymic, cooperative, pleasant, appropriate speech Course Vital Signs Vital signs: Vital Signs Temperature 36.6 C 05/02/25 19:56 Pulse 70 05/02/25 19:56 Respiratory Rate 18 05/02/25 19:56 Blood Pressure 130/78 05/02/25 19:56 Pulse Oximetry 99 05/02/25 19:56 Temperature 36.6 C 05/02/25 19:56 Pulse 70 05/02/25 19:56 Respiratory Rate 18 05/02/25 19:56 Blood Pressure 130/78 05/02/25 19:56 Pulse Oximetry 99 05/02/25 19:56 Oxygen Delivery Method Room Air 05/02/25 19:56 Oxygen Flow Rate 0 05/02/25 19:56 Pain Level 6 05/02/25 19:56 Medical Decision Making This dictation utilizes [id number] dictation software and may contain unedited grammatical errors. 54 year-old male presents to ED today by POV/ambulating with a chief complaint of L lateral neck pain and spasm with onset the past day or two. Quality described as very tight muscles in L trapezius area, no radiation to trauma, headache, visual changes, tinnitus, midline neck pain, endorses intermittent mild tingling down L arm. Severity is described as severe. Palliating factors include nothing specific attempted beyond OTCs. Provoking factors include nothing specific. Patients' medical history: Chronic sciatica, GERD unable to take NSAIDs. Family and social history: Noncontributory. Pertinent exam findings / vital signs include no midline vertebral cervical tenderness or step-offs, palpable tension in the left trapezius, neurovascular intact of bilateral upper extremities with no other complaints, benign cardiopulmonary status. Differential / pathologies of concern include cervical strain, cervical muscle spasm, not vertebral trauma, less likely thoracic outlet syndrome Diagnostic studies of: -None. Interventions of: -P.o. Tylenol, low-dose IM Toradol at patient request for trial, he will take famotidine or Tums if he gets gastritis, Lidoderm patch, 1 Valium, recommend physical therapy visits. ED Course/Assessment/Plan: 54-year-old male with history of sciatica presents with lateral left neck pain and palpable muscle tension, is neurovascular intact of bilateral upper extremity states it feels similar to his sciatica but in his neck, recommended physical therapy visits, he does see a chiropractor counseled him on the risks of having her neck adjusted, recommend he alternate heat and ice to the area use lidocaine patches and regular dose of Tylenol, did provide a diazepam for trial of relief tonight, recommend follow-up with his PCP should he fail to improve and strict return criteria for any myelopathy's of upper extremities or other emergent neurological concerns. Findings not consistent with myelopathy, weakness, trauma. Disposition of Cervical Paraspinous Muscle Spasm. Patient verbalized understanding of the plan and return to ED criteria and engaged in shared decision making. Medical Records Medical records reviewed: Yes I reviewed the patient's medical records. PFSH All Active Problems (Updated 05/02/25 @ 20:23 by DOROTHY Holder) Cervical paraspinous muscle spasm (Acute) Hiatal hernia (Chronic) GERD (gastroesophageal reflux disease) (Chronic) Screening for colon cancer (Acute) Allergic rhinitis (Acute) Generalized anxiety disorder (Acute) Medical History Asbestos exposure Chronic sciatica Numbness and tingling Splenic cyst Surgical History History of colonoscopy with polypectomy (~10/13/17) [place], [place] Social History Smoking/Tobacco Use Status: Never Smoking risk assessment performed?: Yes Alcohol Intake: never Substance use type: does not use Current gender identity: male
[2025-05-02] MEDS: diazePAM 5 MG TAB PO (20:53)
[2025-05-02] MEDS: Acetaminophen 500 MG TAB 1000 MG PO (20:53)
[2025-05-02] MEDS: Lidocaine 5% Patch 1 PATCH TP (20:54)
[2025-05-02] MEDS: Ketorolac 15 MG/ML VIAL IM (20:54)
[2025-05-02 21:03] VITALS: BP 129/79; PULSE 56; O2SAT 98
== END 2025-05-02 21:03 | disposition home or self-care (01) ==
LOC: ER 20:23
PROVIDERS: Emergency Provider Physician Assistant; PCP Nurse Practitioner Family
DX: M62.838 Other muscle spasm (principal); M54.2 Cervicalgia
CPT/HCPCS: 96372; 99283; J1885

== ENCOUNTER 2025-05-08 10:20 | Outpatient (CLI) | payer BC, SELFPAY ==
--- NOTE | 2025-05-08 | DI.RAD_ITS ---
Exam(s) XR CERVICAL SPINE COMP 4-5V EXAM: XR CERVICAL SPINE COMP 4-5V CLINICAL HISTORY: Cervicalgia, M54.2, neck pain. TECHNIQUE: 2D digital imaging was performed. Five views were performed. COMPARISON: No exams were available for comparison FINDINGS: BONES: No fracture or destructive lesion. Vertebral bodies are unremarkable. Mild facet degenerative changes. DISKS: [id number] narrowing of the C5-6 disc space. The plate osteophytes which project mainly anteriorly. Mild bilateral neural foraminal narrowing at this level. The remaining intervertebral disc spaces are maintained. ALIGNMENT: Cervical spinal alignment is within normal limits. The odontoid and atlantoaxial articulations are normal. SOFT TISSUE: Normal. The lung apices are clear. IMPRESSION: Degenerative disc changes cause mild bilateral neural foraminal narrowing at C5- 6. DATA REPOSITORY: RADIATION DOSE DELIVERED:
== END 2025-05-08 10:40 ==
LOC: DI 10:21
PROVIDERS: PCP Nurse Practitioner Family; Visit Provider Nurse Practitioner Family
DX: M50.022 Cervical disc disorder at C5-C6 level with myelopathy (principal)
CPT/HCPCS: 72050